=== PATIENT | female | born 1975 | race Caucasian/White ===

== ENCOUNTER → 2017-01-22 | Outpatient (CLI) | payer OTHER ==
[~2017-01-22] MED LIST: ACHD5005 PO; ALPR.25T PO; AMLO10TA82 PO; AMOX500C2 PO; CARI350T27; CLIN300C3 PO; CTLP20T PO; CYCL10TA9 PO; DICL25TA PO; FLUT9.9S NSEACH; FURO20TA4 PO; GABA-488 PO; HYDR-3714 PO; HYDR-3812; HYDR118S10 PO; HYDR1CAP3 PO; LEVO200T30 PO; LEVO200T6; LEVO200T6 PO; LORA1TAB; LVT.15T; MELO15TA39; METH4TAB10; MUSCLE RELAXER; NAPR-243 PO; NAPR500T8; OMEP-10 PO; ONDA8TAB9 PO; SIMV20TA3 PO; THYR180T2; TIZA4TAB3; TRAZ100T92 PO; TRM50T PO; [UNRECOGNIZED DRUG - CODE] PO
== END ==
LOC: CARD 09:15
PROVIDERS: ATTEND Nurse Practitioner Family
DX: R07.9 Chest pain, unspecified (principal)
CPT/HCPCS: 93017

== ENCOUNTER 2017-01-26 18:10 | Emergency (ER) | payer OTHER ==
[~2017-01-26] VITALS: Ht 162.6 cm; Wt 104.3 kg
--- NOTE | 2017-01-26 18:26 | ED Cough/URI ---
General Chief Complaint: Cough/Cold/Flu Symptoms Stated Complaint: FEVER/BODY ACHES/DIARRHEA Nursing Triage Note: AMB TO ED FOR SEVERAL DAYS HAS HAD COUGH CONGESTION BODY ACHES. HYDROCODONE NOT HELPING. Source: patient Exam Limitations: no limitations History of Present Illness Time seen by provider: 18:25 Initial Comments To ER with 3 days of nasal congestion, purulent nasal discharge, rhinorrhea, productive cough. Generalized body aches and chills. Timing/Duration: constant Severity/Quality: moderate Modifying Factors: Improves With Coughing Associated Symptoms: cough, fever/chills, nasal congestion Allergies and Home Medications Allergies Coded Allergies: Sulfa (Sulfonamide Antibiotics) (Unverified Allergy, Intermediate, HIVES, 01/23/09) cyclobenzaprine (Unverified Allergy, Unknown, SWELLING, 05/23/16) Home Medications Carisoprodol 350 Mg Tablet, #30 (Reported) Fluticasone Propionate 9.9 Ml [place].susp, 2 ML NSEACH DAILY, #1 Prescribed by: KAYDEN BEJARANO on 08/05/16 1225 Hydrocodone/Acetaminophen 1 Each Tablet, #120 (Reported) Levothyroxine Sodium 200 Mcg Tablet, #30 (Reported) Lorazepam 1 Mg Tablet, #60 (Reported) Meloxicam 15 Mg Tablet, #30 (Reported) Methylprednisolone 4 Mg Tab.ds.pk, #21 (Reported) Naproxen 500 Mg Tablet.dr, #60 (Reported) Thyroid,Pork 180 Mg Tablet, #15 (Reported) Tizanidine HCl 4 Mg Tablet, #180 (Reported) Constitutional: see HPI EENTM: see HPI Respiratory: see HPI, cough Cardiovascular: no symptoms reported Genitourinary: no symptoms reported Musculoskeletal: no symptoms reported Skin: no symptoms reported Psychiatric/Neurological: No Symptoms Reported Past Cybmwch-Uijzgy-Tfqdyy Hx Patient Social History Alcohol Use: Denies Use Recreational Drug Use: No Recent Foreign Travel: No Contact w/Someone Who Travel: No Recent Infectious Disease Expo: No Recent Hopitalizations: No Seasonal Allergies Seasonal Allergies: Yes Surgeries HX Surgeries: Yes Surgeries: Section, Gallbladder, Tubal Ligation Respiratory Hx Respiratory Disorders: No Cardiovascular Hx Cardiac Disorders: Yes Cardiac Disorders: Hypertension Neurological Hx Neurological Disorders: Yes Neurological Disorders: Headaches /Migraines Reproductive System Hx Reproductive Disorders: No Sexually Transmitted Disease: No Genitourinary Hx Genitourinary Disorders: No Gastrointestinal Hx Gastrointestinal Disorders: No Musculoskeletal Hx Musculoskeletal Disorders: Yes Musculoskeletal Disorders: Arthritis, Chronic Back Pain Endocrine Hx Endocrine Disorders: Yes Endocrine Disorders: Hypothyroidsim HEENT HX ENT Disorders: No Cancer Hx Cancer: No Psychosocial Hx Psychiatric Problems: Yes Behavioral Health Disorders: Depression Blood Transfusions Hx Blood Disorders: No Family Medical History Significant Family History: No Pertinent Family Hx Physical Exam Vital Signs Vital Sign - Last 12Hours 01/26/17 18:13 Temp 98.6 Pulse 107 Resp 18 B/P (MAP) 146/107 Capillary Refill : Less Than 3 Seconds General Appearance: WD/WN, no apparent distress Eyes: Bilateral Eye EOMI, Bilateral Eye Normal Inspection, Bilateral Eye PERRL HEENT: PERRL/EOMI, normal ENT inspection Respiratory: lungs clear, normal breath sounds, no respiratory distress, no accessory muscle use Cardiovascular: no murmur, tachycardia Gastrointestinal: normal bowel sounds, non tender, soft Neurologic/Psychiatric: alert, normal mood/affect, oriented x 3 Skin: normal color, warm/dry Progress/Results/Core Measures Results/Orders My Orders Orders - NADIA ENGLAND APRN Chest Pa/Lat (2 View) (01/26/17 18:20) Metoprolol Tartrate (Ir) Tab (Lopressor (01/26/17 18:30) Medications Given in ED Current Medications Medications Dose Ordered Sig/Patricia Route Start Time Stop Time Status Last Admin Dose Admin Metoprolol Tartrate 25 mg ONCE ONCE PO 01/26/17 18:30 01/26/17 18:31 DC 01/26/17 18:33 25 MG Vital Signs/I&O Vital Sign - Last 12Hours 01/26/17 18:13 Temp 98.6 Pulse 107 Resp 18 B/P (MAP) 146/107 Blood Pressure Mean: 120 Departure Impression Impression: Primary Impression: Acute sinusitis Disposition: 01 HOME, SELF-CARE Condition: Stable Departure-Patient Inst. Decision time for Depature: 18:34 Referrals: JAMES WRIGHT MD (PCP/Family) Primary Care Physician Patient Instructions: Sinusitis, Adult (DC) Add. Discharge Instructions: 1. Antibiotics and steroids as directed 2. Use an cjbe-bbl-yjvazcv nasal steroid spray like Flonase as directed 3. Follow-up with your doctor later this week All discharge instructions reviewed with patient and/or family. Voiced understanding. Scripts Prednisone (Prednisone) 20 Mg Tab 40 MG PO DAILY, #6 TAB Prov: NADIA ENGLAND APRN 01/26/17 Amoxicillin/Potassium Clav (Augmentin 875-125 Tablet) 1 Each Tablet 1 EACH PO BID, #14 TAB Prov: NADIA ENGLAND APRN 01/26/17 NADIA ENGLAND APRN January 26, 2017 18:26
[2017-01-26] MEDS ORDERED: meTOprolol TARTRATE 25 MG (LOPRESSOR) TABLET PO ONE (18:30)
[2017-01-26] MEDS ORDERED: PRD20T PO (18:36)
[2017-01-26] MEDS ORDERED: AMOX-358 PO (18:36)
[2017-01-26] MEDS ORDERED: predniSONE 20 MG TAB PO ONE (18:45)
[2017-01-26] MEDS ORDERED: AUGMENTIN 875 MG TAB (AMOXICILLIN/CLAVULANATE) PO SCH (18:45)
[2017-01-26 18:53] VITALS: BP 134/92
--- NOTE | 2017-01-26 19:19 | Diagnostic Imaging Report ---
Clinical indication: Patient with chest pressure, cough, drainage and fatigue for the past couple days. Exam: Chest x-ray PA and lateral views. Comparisons: Chest x-ray dated 05/15/2016. Findings: Lungs/pleura: Lungs are clear. There is no pneumothorax. There is no pleural effusion. Mediastinum: Unremarkable. Pulmonary vasculature: Unremarkable. Heart: Unremarkable. Bones/extrathoracic soft tissue: Unremarkable. Impression: There is no radiographic evidence of acute cardiopulmonary process. Dictated by: Dictated on workstation # [id number]
== END 2017-01-26 18:56 | disposition home or self-care (01) ==
LOC: EDUNIT# 18:10 → ER 18:11
DX: J20.9 Acute bronchitis, unspecified (principal); R50.9 Fever, unspecified; R19.7 Diarrhea, unspecified; I10 Essential (primary) hypertension; E03.9 Hypothyroidism, unspecified; Z79.899 Other long term (current) drug therapy
CPT/HCPCS: 71020; 99282

== ENCOUNTER → 2017-02-21 | Outpatient (CLI) | payer OTHER ==
[~2017-02-21] MED LIST changes: +AMOX-358 PO; +PRD20T PO
--- NOTE | 2017-02-22 14:33 | ECHOCARDIOGRAPHY REPORT ---
DATE OF SERVICE: 02/21/2017 TWO DIMENSIONAL ECHOCARDIOGRAM REPORT REFERRING PHYSICIAN: Dr. Austin Recio. MEASUREMENT: LVID end diastolic 3.5. IVS thickness 1.1. LVPW thickness 0.9. Left atrial diameter 2.9. Ejection fraction 60%. FINDINGS: 1. Technical quality is good. 2. The left ventricle is normal in size with normal contractility, systolic function appeared to be normal. Estimated ejection fraction 60%. 3. The left atrium is normal in size. No clot or thrombus were seen within the left atrium. 4. The right atrium and right ventricle are normal in size. No clot or thrombus were seen within the right side. 5. Mitral valve is normal in morphology with mild mitral regurgitation noted by color Doppler flow. No mitral valve prolapse. No mitral valve stenosis, Doppler across the mitral valve showed equalization of E and A, which is suggestive of diastolic dysfunction. 6. Aortic valve is trileaflet with normal opening and closing pattern. No significant aortic stenosis or regurgitation was seen. 7. Tricuspid valve is normal in morphology with mild tricuspid regurgitation noted by color Doppler flow. Doppler across the tricuspid valve estimated pulmonary artery pressure of 6+ right atrial pressure. 8. Pulmonic valve is functioning normally. 9. No pericardial effusion. CONCLUSION: 1. Normal left ventricular size and systolic function, estimated ejection fraction 60%. 2. Doppler across the left ventricular inflow tract is suggestive of diastolic dysfunction. 3. Mild mitral and tricuspid regurgitation. 4. Estimated pulmonary artery pressure of 15 mmHg. Job ID: [id number] DocumentID: [id number] Dictated Date: 02/22/2017 10:24:24 Stock Crane Operator Date: 02/22/2017 11:31:03 Dictated By: JN MESA MD
== END ==
LOC: CARD 12:46
PROVIDERS: ATTEND Internal Medicine Cardiovascular Disease
DX: I10 Essential (primary) hypertension (principal); R07.89 Other chest pain; E07.9 Disorder of thyroid, unspecified; K21.9 Gastro-esophageal reflux disease without esophagitis
CPT/HCPCS: 93306

== ENCOUNTER → 2017-03-12 | Outpatient (CLI) | payer OTHER ==
[~2017-03-12] MED LIST changes: +CATHETER FLUSH 10 ML SYR IV PRN
[2017-03-12 12:55] VITALS: BP 135/79
[2017-03-12 12:58] VITALS: BP 166/92
[2017-03-12 13:03] VITALS: BP 164/86
[2017-03-12 13:05] VITALS: BP 140/80
[2017-03-12 13:07] VITALS: BP 118/74
--- NOTE | 2017-03-14 14:31 | STRESS TEST ---
PROCEDURE PHYSICIAN: JN MESA DATE OF PROCEDURE: 03/12/2017 EXERCISE MYOVIEW STRESS TEST REPORT: REFERRING PHYSICIAN: Dr. Recio BASELINE HEART RATE: 81 BASELINE BLOOD PRESSURE: 135/79 BASELINE EKG: Sinus rhythm with no ischemic changes. IN SUMMARY: The patient was injected with 10.72 mCi of technetium 99 Myoview and the resting images were obtained. Then the patient started exercising with a baseline heart rate, blood pressure, EKG mentioned above. At minute 5 and 25 seconds, the patient was injected with 32.9 mCi of technetium 99 Myoview. Throughout the test, there were minimal nondiagnostic EKG changes. Blood pressure at peak was 166/92. During recovery, heart rate and blood pressure returned to baseline. EKG returned to baseline. The resting and stress images were reviewed and compared in the short axis, horizontal long axis, and vertical long axis views. Review of the images showed breast attenuation affecting the quality of the study. There was mild decreased uptake at the anteroapical segment, no significant ischemia or infarction. SSS is 4, SDS 1, TID value 1.06. On the gated images, the left ventricle appeared to be normal size with normal contractility. Calculated ejection fraction 58%. IN CONCLUSION: 1. Good exercise tolerance a total of 6 minutes 30 seconds on standard Joseph protocol. Total 7 METs, achieving maximum expected heart rate. 2. Appropriate heart rate and blood pressure response to exercise. Returned to baseline during recovery. 3. Nondiagnostic EKG changes with exercise. Returned to baseline during recovery. 4. Breast attenuation with typical female pattern. No significant ischemia or infarction on SPECT images. 5. Normal left ventricular size with normal contractility. Calculated ejection fraction 58%. Job ID: [id number] Dictated Date: 03/14/2017 10:36:47 Lead Java Programmer Date: 03/14/2017 14:25:43 / marika
== END ==
LOC: CARD 11:19
PROVIDERS: ATTEND Internal Medicine Cardiovascular Disease
DX: R07.89 Other chest pain (principal); I10 Essential (primary) hypertension; E07.9 Disorder of thyroid, unspecified; K21.9 Gastro-esophageal reflux disease without esophagitis
CPT/HCPCS: 78452; 93017

== ENCOUNTER 2017-04-29 10:15 | Emergency (ER) | payer OTHER ==
[~2017-04-29] VITALS: Ht 162.6 cm; Wt 104.3 kg
[~2017-04-29 10:15] MED LIST changes: -CATHETER FLUSH 10 ML SYR IV PRN
[2017-04-29] MEDS ORDERED: PARO-49 PO (10:30)
--- NOTE | 2017-04-29 10:49 | ED Back Pain ---
General Chief Complaint: Back Problems Stated Complaint: LOWER BACK PAIN Nursing Triage Note: PT STATES HX OF BACK PAIN, CC OF LOW BACK PAIN GOING DOWN RT LEG SINCE 0800 THIS A.M. Nursing Sepsis Screen: No Definite Risk Source of Information: Patient Exam Limitations: No Limitations History of Present Illness Time Seen by Provider: 10:30 Location: Lumbar Spine, Paraspinous Muscles Timing/Duration: 1-3 Hours Severity: Moderate Pain/Injury Location: Back Radiation: Buttocks, Upper Legs Modifying Factors: Worse With Movement, Improves With Rest Associated Symptoms: muscle spasms, No weakness, No numbness in legs/feet, No tingling in legs/feet, lower back pain, No loss of bladder control, No loss of bowel control Allergies and Home Medications Allergies Coded Allergies: Sulfa (Sulfonamide Antibiotics) (Unverified Allergy, Intermediate, HIVES, 01/23/09) cyclobenzaprine (Unverified Allergy, Unknown, SWELLING, 05/23/16) Home Medications Carisoprodol 350 Mg Tablet, #30 (Reported) Fluticasone Propionate 9.9 Ml [place].susp, 2 ML NSEACH DAILY, #1 Prescribed by: KAYDEN BEJARANO on 08/05/16 1225 Hydrocodone/Acetaminophen 1 Each Tablet, #120 (Reported) Levothyroxine Sodium 200 Mcg Tablet, #30 (Reported) Lorazepam 1 Mg Tablet, #60 (Reported) Meloxicam 15 Mg Tablet, #30 (Reported) Methylprednisolone 4 Mg Tab.ds.pk, #21 (Reported) Naproxen 500 Mg Tablet.dr, #60 (Reported) Paroxetine HCl 20 Mg Tablet, 20 MG PO DAILY, (Reported) Prednisone 20 Mg Tab, 40 MG PO DAILY, #6 Prescribed by: NADIA ENGLAND on 01/26/17 1836 Thyroid,Pork 180 Mg Tablet, #15 (Reported) Tizanidine HCl 4 Mg Tablet, #180 (Reported) Constitutional: see HPI, No chills, No fever Respiratory: no symptoms reported Cardiovascular: no symptoms reported Gastrointestinal: diarrhea, No nausea, No vomiting Genitourinary: no symptoms reported Musculoskeletal: back pain Psychiatric/Neurological: No Symptoms Reported Past Iguncfk-Vvvqgk-Ztejiq Hx Patient Social History Alcohol Use: Denies Use Recreational Drug Use: No Smoking Status: Never a Smoker Recent Foreign Travel: No Contact w/Someone Who Travel: No Recent Infectious Disease Expo: No Recent Hopitalizations: No Seasonal Allergies Seasonal Allergies: Yes Surgeries HX Surgeries: Yes Surgeries: Section, Gallbladder, Tubal Ligation Respiratory Hx Respiratory Disorders: No Cardiovascular Hx Cardiac Disorders: Yes Cardiac Disorders: Hypertension Neurological Hx Neurological Disorders: Yes Neurological Disorders: Headaches /Migraines Reproductive System : No Hx Reproductive Disorders: No Sexually Transmitted Disease: No 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 Genitourinary Hx Genitourinary Disorders: No Gastrointestinal Hx Gastrointestinal Disorders: No Musculoskeletal Hx Musculoskeletal Disorders: Yes Musculoskeletal Disorders: Arthritis, Chronic Back Pain Endocrine Hx Endocrine Disorders: Yes Endocrine Disorders: Hypothyroidsim HEENT HX ENT Disorders: No Cancer Hx Cancer: No Psychosocial Hx Psychiatric Problems: Yes Behavioral Health Disorders: Depression Blood Transfusions Hx Blood Disorders: No Reviewed Nursing Assessment Reviewed/Agree w Nursing PMH: Yes Family Medical History Significant Family History: No Pertinent Family Hx Physical Exam Vital Signs Vital Sign - Last 12Hours 04/29/17 10:24 Temp 97.4 Pulse 83 Resp 20 B/P (MAP) 142/93 Pulse Ox 100 O2 Delivery Room Air Capillary Refill : Less Than 3 Seconds General Appearance: No Apparent Distress, WD/WN Cardiovascular: Regular Rate, Rhythm, No Murmur Respiratory: Lungs Clear, Normal Breath Sounds Back: Muscle Spasm, Other (right low back tenderness) Extremity: Normal Range of Motion, Non Tender Neurologic/Psychiatric: Alert, Oriented x3, No Motor/Sensory Deficits, Other ( retains feeling between the legs. She is able to dorsiflex and plantarflex the feet bilaterally without difficulty.) Skin: Normal Color, Warm/Dry Progress/Results/Core Measures Results/Orders My Orders Orders - DEMETRA EUGENE MD Ketorolac Injection (Toradol Injection) (04/29/17 11:00) Vital Signs/I&O Vital Sign - Last 12Hours 04/29/17 10:24 Temp 97.4 Pulse 83 Resp 20 B/P (MAP) 142/93 Pulse Ox 100 O2 Delivery Room Air Blood Pressure Mean: 109 Progress Note : Progress Note Seen and evaluated. Toradol 60 mg IM. Discharged home with return precautions. Patient verbalize understanding instructions and agreement with plan. She did report some blood in her stool with diarrhea yesterday. She states that she wishes hemorrhoids. I did offer exam and evaluation for this which she declined. She states she has appointment next week for her women's health exam and she will have follow then. Encouraged to return for any concerns related to that and definitely to seek evaluation for this. Discharged home with return precautions. Patient verbalize understanding instructions and agreement with plan. Departure Impression Impression: Primary Impression: Lumbar radiculopathy Disposition: HOME, SELF-CARE Condition: Improved Departure-Patient Inst. Decision time for Depature: 11:07 Referrals: JAMES WRIGHT MD (PCP/Family) Primary Care Physician Patient Instructions: Low Back Pain (DC), Radiculopathy (DC) Add. Discharge Instructions: All discharge instructions reviewed with patient and/or family. Voiced understanding. Continue home medications as directed. Take other medications as prescribed. Follow-up with your Dr. in a few days for recheck. Return for worse pain, fever , vomiting, weakness, breathing problems, blood in urine or stools or persistent rectal bleeding or other concerns as needed. Keep appointment with your doctor and discuss with your doctor related to a concern for hemorrhoid and /or blood with diarrhea. Scripts Prednisone (Prednisone) 20 Mg Tab 40 MG PO DAILY, #10 TAB 0 Refills Prov: DEMETRA EUGENE MD 04/29/17 DEMETRA EUGENE MD Apr 29, 2017 10:49
[2017-04-29] MEDS ORDERED: KETOROLAC 60 MG/2 ML VIAL IM STA (11:00)
[2017-04-29] MEDS ORDERED: PRD20T PO (11:07)
[2017-04-29 11:31] VITALS: BP 142/93
== END 2017-04-29 11:30 | disposition home or self-care (01) ==
LOC: EDUNIT# 10:15 → ER 10:18
DX: M54.16 Radiculopathy, lumbar region (principal); I10 Essential (primary) hypertension; G43.909 Migraine, unspecified, not intractable, without status migrainosus; M19.90 Unspecified osteoarthritis, unspecified site; E03.9 Hypothyroidism, unspecified; F32.9 Major depressive disorder, single episode, unspecified; Z87.59 Personal history of other complications of pregnancy, childbirth and the puerperium; Z98.51 Tubal ligation status
CPT/HCPCS: 96372; 99284

== ENCOUNTER 2017-06-10 16:42 | Emergency (ER) | payer OTHER ==
[~2017-06-10] VITALS: Ht 162.6 cm; Wt 103.4 kg
[~2017-06-10 16:42] MED LIST changes: +PARO-49 PO
--- OUTSIDE RECORDS SUMMARY | 2017-06-10 16:49 | XMS REPORT ---
Author Author MARIAA CLEMENTE [facility] Address Unknown Care Team Providers Care Applications Scientist Name Role Phone MARIAA CLEMENTE Unavailable PROBLEMS Type Condition ICD9-CM Code ICD76-VY Code Onset Dates Condition Status SNOMED Code Problem Dysthymia 300.4 Active 06174332 Problem Chronic pain G89.29 Active 06787502 Problem Acquired hypothyroidism E03.9 Active 443922771 Problem Other chronic pain G89.29 Active 34114186 Problem Insomnia 780.52 Active 122795608 Problem Primary insomnia F51.01 Active 4201147 Problem Depression F32.9 Active 37144263 ALLERGIES Substance Reaction Event Type Date Status Cortisone Unknown Drug Allergy Jul, Active Sulfamethoxazole Unknown Drug Allergy Jul, Active Flexeril Unknown Drug Allergy Jul, Active SOCIAL HISTORY No smoking Hx information available PLAN OF CARE Activity Details Follow Up prn Reason:te #30 VITAL SIGNS Blood pressure systolic 116 mmHg 2016-08-13 Blood pressure diastolic 91 mmHg 2016-08-13 MEDICATIONS Medication Instructions Dosage Frequency Start Date End Date Duration Status Tizanidine HCl Active Naproxen Active Levothyroxine Sodium 175 MCG Orally Once a day 1 tablet 24h Jul, 30 day(s) Active Hydrocodone-Acetaminophen 5-325 MG Orally every 8 hours prn must last 4 weeks take 1 tablet Active Carisoprodol Active RESULTS No Results PROCEDURES Procedure Date Ordered Related Diagnosis Body Site LTD ORAL EVALUATION - PROBLEM FOCUS Aug 13, 2016 INTRAORL-PERIAPICAL 1 FILM [id number] Aug 13, 2016 BITEWING - SINGLE FILM Aug 13, 2016 IMMUNIZATIONS No Known Immunizations
--- OUTSIDE RECORDS SUMMARY | 2017-06-10 16:49 | XMS REPORT ---
Author Author MARIAA CLEMENTE [facility] Address Unknown Care Team Providers Care Inspector [employer] Name Role Phone MARIAA CLEMENTE Unavailable PROBLEMS Type Condition ICD9-CM Code [id number] Code Onset Dates Condition Status SNOMED Code Problem Dysthymia 300.4 Active 27739346 Problem Primary insomnia F51.01 Active 7819325 Problem Depression F32.9 Active 49133643 Problem Other chronic pain G89.29 Active 05383090 Problem Insomnia 780.52 Active 197831593 Problem Chronic pain G89.29 Active 58159253 Problem Acquired hypothyroidism E03.9 Active 315326933 ALLERGIES Substance Reaction Event Type Date Status Cortisone Unknown Drug Allergy Oct, Active Sulfamethoxazole Unknown Drug Allergy Oct, Active Flexeril Unknown Drug Allergy Oct, Active SOCIAL HISTORY Never Assessed PLAN OF CARE Activity Details Follow Up prn Reason:MARIBEL with HYG VITAL SIGNS Blood pressure systolic 127 mmHg 2016-10-17 Blood pressure diastolic 84 mmHg 2016-10-17 MEDICATIONS Medication Instructions Dosage Frequency Start Date End Date Duration Status Levothyroxine Sodium 175 MCG Orally Once a day 1 tablet 24h Jul, 30 day(s) Active Carisoprodol Active Tizanidine HCl Active Naproxen Active Hydrocodone-Acetaminophen 5-325 MG Orally every 8 hours prn must last 4 weeks take 1 tablet Active RESULTS No Results PROCEDURES Procedure Date Ordered Result Body Site SURG REMOVAL ERUPTED TOOTH Oct 17, 2016 IMMUNIZATIONS No Known Immunizations MEDICAL (GENERAL) HISTORY Type Description Date Medical History back pain-chronic Medical History headache Medical History lumbar radiculopathy Medical History obesity Medical History Hypothyroidism Medical History hyperlipidemia Medical History bulging disc(s) Medical History gastroesophageal reflux disease (GERD) Medical History insomnia Medical History dysthymic disorder Medical History recurrent dislocation of knee Medical History meninscus tear Medical History lazy eye (R) Medical History PCOS (Polycystic Ovary Syndrome) Surgical History tubal ligation Surgical History section x2 Surgical History cholecystectomy Hospitalization History Surgery(s)/Childbirth(s) only
[2017-06-10] MEDS ORDERED: KETOROLAC 60 MG/2 ML VIAL IM STA (17:38)
--- NOTE | 2017-06-10 17:45 | ED Back Pain ---
General Chief Complaint: Back Problems Stated Complaint: BACK PAIN Nursing Triage Note: C/O BACK PAIN REPORTS HER PAIN MEDS HAVE JUST BEEN INCREASED. Nursing Sepsis Screen: No Definite Risk Source of Information: Patient Exam Limitations: No Limitations History of Present Illness Time Seen by Provider: 17:30 Initial Comments Here with report of low back pain. Has history of chronic pain and is on pain medicines and muscle relaxers. States that that did not really help much today. 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 She works part of the day today but was unable to complete it. Denies numbness between her legs, weakness or difficulty walking. Denies bowel or bladder incontinence. Pain is chronic but exacerbated currently. On her last visit here she responded very well to steroids and reports that she thinks that would help her as well. Location: Lumbar Spine, Paraspinous Muscles Timing/Duration: 1-2 Days Severity: Moderate Radiation: Buttocks Method of Injury: Unknown Modifying Factors: Worse With Movement Associated Symptoms: No numbness in legs/feet, No tingling in legs/feet, No sensory/motor loss, lower back pain, No loss of bladder control, No loss of bowel control Allergies and Home Medications Allergies Coded Allergies: Sulfa (Sulfonamide Antibiotics) (Unverified Allergy, Intermediate, HIVES, 01/23/09) cyclobenzaprine (Unverified Allergy, Unknown, SWELLING, 05/23/16) Home Medications Carisoprodol 350 Mg Tablet, #30 (Reported) Fluticasone Propionate 9.9 Ml [place].susp, 2 ML NSEACH DAILY, #1 Prescribed by: KAYDEN BEJARANO on 08/05/16 1225 Hydrocodone/Acetaminophen 1 Each Tablet, #120 (Reported) Levothyroxine Sodium 200 Mcg Tablet, #30 (Reported) Lorazepam 1 Mg Tablet, #60 (Reported) Meloxicam 15 Mg Tablet, #30 (Reported) Methylprednisolone 4 Mg Tab.ds.pk, #21 (Reported) Naproxen 500 Mg Tablet.dr, #60 (Reported) Paroxetine HCl 20 Mg Tablet, 20 MG PO DAILY, (Reported) Prednisone 20 Mg Tab, 40 MG PO DAILY, #6 Prescribed by: NADIA ENGLAND on 01/26/17 1836 Prednisone 20 Mg Tab, 40 MG PO DAILY, #10 Ref 0 Prescribed by: DEMETRA EUGENE on 04/29/17 1107 Thyroid,Pork 180 Mg Tablet, #15 (Reported) Tizanidine HCl 4 Mg Tablet, #180 (Reported) Constitutional: see HPI, No chills, No fever Respiratory: no symptoms reported Cardiovascular: no symptoms reported Gastrointestinal: no symptoms reported Musculoskeletal: see HPI, back pain, muscle pain Psychiatric/Neurological: No Symptoms Reported Past Zoxoyfi-Ymkprs-Mhwpcv Hx Patient Social History Alcohol Use: Denies Use Recreational Drug Use: No Recent Foreign Travel: No Contact w/Someone Who Travel: No Recent Infectious Disease Expo: No Recent Hopitalizations: No Seasonal Allergies Seasonal Allergies: Yes Surgeries History of Surgeries: Yes Surgeries: Section, Gallbladder, Tubal Ligation Respiratory History of Respiratory Disorde: No Cardiovascular History of Cardiac Disorders: Yes Cardiac Disorders: Hypertension Neurological History of Neurological Disord: Yes Neurological Disorders: Headaches /Migraines Reproductive System Hx Reproductive Disorders: No Sexually Transmitted Disease: No 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 Genitourinary History of Genitourinary Disor: No Gastrointestinal History of Gastrointestinal Di: No Musculoskeletal History of Musculoskeletal Dis: Yes Musculoskeletal Disorders: Arthritis, Chronic Back Pain Endocrine History of Endocrine Disorders: Yes Endocrine Disorders: Hypothyroidsim Cancer History of Cancer: No Psychosocial History of Psychiatric Problem: Yes Behavioral Health Disorders: Depression Integumentary History of Skin or Integumenta: No Blood Transfusions History of Blood Disorders: No Reviewed Nursing Assessment Reviewed/Agree w Nursing PMH: Yes Family Medical History Significant Family History: No Pertinent Family Hx Physical Exam Vital Signs Vital Sign - Last 12Hours 06/10/17 17:21 Temp 97.6 Pulse 89 Resp 18 B/P (MAP) 164/100 Pulse Ox 99 O2 Delivery Room Air Capillary Refill : Less Than 3 Seconds General Appearance: No Apparent Distress, WD/WN Cardiovascular: Regular Rate, Rhythm, No Murmur Respiratory: Lungs Clear, Normal Breath Sounds Gastrointestinal: Non Tender, Soft Back: No CVA Tenderness, No Vertebral Tenderness, Other (paraspinous tenderness in the lumbar region L2 to L4. Bilateral. No tenderness over the hips. Able to dorsiflex and plantar flex without difficulty. Denies numbness between her legs.) Extremity: Normal Range of Motion, Non Tender Neurologic/Psychiatric: Alert, Oriented x3 Skin: Normal Color, Warm/Dry Progress/Results/Core Measures Results/Orders My Orders Orders - DEMETRA EUGENE MD Ketorolac Injection (Toradol Injection) (06/10/17 17:38) Vital Signs/I&O Vital Sign - Last 12Hours 06/10/17 17:21 Temp 97.6 Pulse 89 Resp 18 B/P (MAP) 164/100 Pulse Ox 99 O2 Delivery Room Air Blood Pressure Mean: 121 Progress Note : Progress Note Seen and evaluated. Toradol 60 mg IM. Discharged home with return precautions. Patient verbalize understanding instructions and agreement with plan. Departure Impression Impression: Primary Impression: Lumbar radiculopathy Disposition: HOME, SELF-CARE Condition: Stable Departure-Patient Inst. Decision time for Depature: 17:47 Referrals: JAMES WRIGHT MD (PCP/Family) Primary Care Physician Patient Instructions: Lumbar Muscle Strain (DC) Add. Discharge Instructions: All discharge instructions reviewed with patient and/or family. Voiced understanding. Continue home medications as directed. You may also take ibuprofen 800 mg every 8 hours as needed for pain. You may use icy hot with lidocaine patch or Aspercreme lidocaine patch are similar to area of concern per package directions. Follow up with your DrDinah in one to 2 days for recheck. Return for worse pain, fever, vomiting, weakness, breathing problems or other concerns as needed. Scripts Prednisone (Prednisone) 20 Mg Tab 40 MG PO DAILY, #14 TAB 0 Refills Prov: DEMETRA EUGENE MD 06/10/17 Work/School Note: Work Release Form Date Seen in the Emergency Department: Jun 10, 2017 Return to Work: Jun 12, 2017 Restrictions: No Restrictions DEMETRA EUGENE MD Jun 10, 2017 17:45
[2017-06-10] MEDS ORDERED: PRD20T PO (17:49)
[2017-06-10 18:05] VITALS: BP 164/100
== END 2017-06-10 18:05 | disposition home or self-care (01) ==
LOC: EDUNIT# 16:42 → ER 16:43
DX: M54.16 Radiculopathy, lumbar region (principal); I10 Essential (primary) hypertension; G43.909 Migraine, unspecified, not intractable, without status migrainosus; F32.9 Major depressive disorder, single episode, unspecified; E03.9 Hypothyroidism, unspecified; Z98.51 Tubal ligation status; Z87.59 Personal history of other complications of pregnancy, childbirth and the puerperium
CPT/HCPCS: 96372; 99284

== ENCOUNTER → 2017-08-14 | Outpatient (CLI) | payer OTHER ==
--- NOTE | 2017-08-14 08:35 | Diagnostic Imaging Report ---
Right breast ultrasound. INDICATION: Asymmetry in the right breast. FINDINGS: The four quadrants and retroareolar region of the right breast were scanned with no underlying abnormality seen. IMPRESSION: Negative study. A six-month followup mammogram to ensure stability of the likely benign lobulated circumscribed focal asymmetry in the right breast is recommended. ACR BI-RADS Category 1: Negative. Result letter will be mailed to the patient. Note: At least 10% of breast cancer is not imaged by mammography. Dictated by: Dictated on workstation # [id number]
--- NOTE | 2017-08-14 09:30 | Diagnostic Imaging Report ---
Right breast diagnostic mammogram with tomography evaluation. INDICATION: Followup asymmetry seen in the central aspect of the right breast and laterally. CAD is utilized. No prior studies are available for comparison except for the screening mammogram done on 07/23/2017. FINDINGS: There is a lobulated focal asymmetry in the outer aspect of the right breast. It has circumscribed margins and may relate to a cyst or an intramammary lymph node. IMPRESSION: Confirmed circumscribed 1-cm nodule in the outer aspect of the right breast is favored to be benign. Ultrasound evaluation pending. ACR BI-RADS Category 0: Incomplete. (Needs additional imaging evaluation). Result letter will be mailed to the patient. Note: At least 10% of breast cancer is not imaged by mammography. Dictated by: Dictated on workstation # [id number]
== END ==
LOC: RAD 07:25
PROVIDERS: ATTEND Nurse Practitioner Family
DX: N64.89 Other specified disorders of breast (principal)
CPT/HCPCS: 76641

== ENCOUNTER → 2017-12-09 | Outpatient (CLI) | payer OTHER ==
[~2017-12-09] MED LIST changes: +ACHD5005; -HYDR-3812
--- NOTE | 2017-12-09 15:07 | Diagnostic Imaging Report ---
INDICATION: Left foot pain laterally. TIME OF EXAMINATION: 2:47 PM. TECHNIQUE: Three views of the left foot were obtained. FINDINGS: The metatarsals appear intact. No periosteal reaction or stress reaction is identified. The phalanges are intact. The midfoot and hindfoot are unremarkable apart from large posterior and plantar calcaneal spurs. No fractures are seen. IMPRESSION: No acute bony abnormality is detected. Dictated by: Dictated on workstation # [id number]
== END ==
LOC: RAD 14:12
PROVIDERS: ATTEND Nurse Practitioner Family
DX: M79.672 Pain in left foot (principal)
CPT/HCPCS: 73630

== ENCOUNTER 2018-07-24 16:12 | Emergency (ER) | payer OTHER ==
[~2018-07-24] VITALS: Ht 160 cm; Wt 100.7 kg
[~2018-07-24 16:12] MED LIST changes: +TRAZ-190 PO; -TRAZ100T92 PO
--- OUTSIDE RECORDS SUMMARY | 2018-07-24 16:21 | XMS REPORT | Continuity of Care Document ---
Author Author [facility] Ctr of [facility] of [facility] Address Unknown Phone Unavailable Allergies Active Description Code Type Severity Reaction Onset Reported/Identified Relationship to Patient Clinical Status Yes Sulfa (Sulfonamide Antibiotics) [id number] Drug Allergy Moderate HIVES 07/2009 Yes Sulfa (Sulfonamide Antibiotics) Drug Allergy N/A N/A 07/31/2009 Yes Flexeril Drug Allergy N/A N/A 12/18/2010 Yes Cortisone Drug Allergy N/A N/A 11/23/2013 Yes cyclobenzaprine [id number] Drug Allergy Unknown SWELLING 05/23/2016 Medications There is no data. Problems Date Dx Coded Attending Type Code Diagnosis Diagnosed By 04/12/2008 JITENDRA GARCIA DO 719.47 PAIN IN JOINT INVOLVING ANKLE AND FOOT 04/12/2008 TAMIKO CARROLL MD 719.47 PAIN IN JOINT INVOLVING ANKLE AND FOOT 04/12/2008 JITENDRA GARCIA DO 719.47 PAIN IN JOINT INVOLVING ANKLE AND FOOT 04/12/2008 JITENDRA GARCIA DO 719.47 PAIN IN JOINT INVOLVING ANKLE AND FOOT 04/12/2008 JITENDRA GARCIA DO 719.Mateo PAIN IN JOINT INVOLVING ANKLE AND FOOT 04/12/2008 LORA CASTRO APRN 719.47 PAIN IN JOINT INVOLVING ANKLE AND FOOT 04/12/2008 LUIS F ROMERO APRN 719.47 PAIN IN JOINT INVOLVING ANKLE AND FOOT 04/12/2008 LUIS F ROMERO APRN 719.47 PAIN IN JOINT INVOLVING ANKLE AND FOOT 04/12/2008 LUIS F ROMERO APRN 719.47 PAIN IN JOINT INVOLVING ANKLE AND FOOT 04/12/2008 LUIS F ROMERO APRN 719.47 PAIN IN JOINT INVOLVING ANKLE AND FOOT 04/12/2008 JITENDRA GARCIA DO 719.47 PAIN IN JOINT INVOLVING ANKLE AND FOOT 04/12/2008 JITENDRA GARCIA DO 719.47 PAIN IN JOINT INVOLVING ANKLE AND FOOT 04/12/2008 MADL DIE MAKER APPRENTICE, LUIS F L 719.47 PAIN IN JOINT INVOLVING ANKLE AND FOOT 04/12/2008 719.47 PAIN IN JOINT INVOLVING ANKLE AND FOOT 04/12/2008 MADL DIE MAKER APPRENTICE, LUIS F L 719.47 PAIN IN JOINT INVOLVING ANKLE AND FOOT 04/12/2008 GARCIA DO JITENDRA K 719.47 PAIN IN JOINT INVOLVING ANKLE AND FOOT 04/12/2008 MADL DIE MAKER APPRENTICE, LUIS F L 719.47 PAIN IN JOINT INVOLVING ANKLE AND FOOT 04/12/2008 MADL DIE MAKER APPRENTICE, LUIS F L 719.47 PAIN IN JOINT INVOLVING ANKLE AND FOOT 04/15/2008 GARCIA DO JITENDRA K 845.00 SPRAIN/STRAIN ANKLE 04/15/2008 GLEN BARAHONA, TAMIKO Francis 845.00 SPRAIN/STRAIN ANKLE 04/15/2008 GARCIA DO JITENDRA K 845.00 SPRAIN/STRAIN ANKLE 04/15/2008 GARCIA DO JITENDRA K 845.00 SPRAIN/STRAIN ANKLE 04/15/2008 GARCIA DO JITENDRA K 845.00 SPRAIN/STRAIN ANKLE 04/15/2008 MATTHEW DIE MAKER APPRENTICE, LORA R 845.00 SPRAIN/STRAIN ANKLE 04/15/2008 MADL DIE MAKER APPRENTICE, LUIS F L 845.00 SPRAIN/STRAIN ANKLE 04/15/2008 MADL DIE MAKER APPRENTICE, LUIS F L 845.00 SPRAIN/STRAIN ANKLE 04/15/2008 MADL DIE MAKER APPRENTICE, LUIS F L 845.00 SPRAIN/STRAIN ANKLE 04/15/2008 MADL DIE MAKER APPRENTICE, LUIS F L 845.00 SPRAIN/STRAIN ANKLE 04/15/2008 GARCIA DO, JITENDRA K 845.00 SPRAIN/STRAIN ANKLE 04/15/2008 GARCIA DO, JITENDRA K 845.00 SPRAIN/STRAIN ANKLE 04/15/2008 MADL DIE MAKER APPRENTICE, LUIS F L 845.00 SPRAIN/STRAIN ANKLE 04/15/2008 845.00 SPRAIN/ STRAIN ANKLE 04/15/2008 MADL DIE MAKER APPRENTICE, LUIS F L 845.00 SPRAIN/STRAIN ANKLE 04/15/2008 GARCIA DO JITENDRA K 845.00 SPRAIN/STRAIN ANKLE 04/15/2008 MADL DIE MAKER APPRENTICE, LUIS F L 845.00 SPRAIN/STRAIN ANKLE 04/15/2008 MADL DIE MAKER APPRENTICE, LUIS F L 845.00 SPRAIN/STRAIN ANKLE 05/31/2008 GARCIA DO, JITENDRA K 465.9 UPPER RESPIRATORY INFECTION 05/31/2008 GARCIA DO, JITENDRA K 724.2 lower back pain 05/31/2008 GLEN BARAHONA, TAMIKO M 465.9 UPPER RESPIRATORY INFECTION 05/31/2008 GLEN BARAHONA, TAMIKO M 724.2 lower back pain 05/31/2008 GARCIA DO, JITENDRA K 465.9 UPPER RESPIRATORY INFECTION 05/31/2008 GARCIA DO, JITENDRA K 724.2 lower back pain 05/31/2008 GARCIA DO, JITENDRA K 465.9 UPPER RESPIRATORY INFECTION 05/31/2008 GARCIA DO, JITENDRA K 724.2 lower back pain 05/31/2008 GARCIA DO, JITENDRA K 465.9 UPPER RESPIRATORY INFECTION 05/31/2008 GARCIA DO, JITENDRA K 724.2 lower back pain 05/31/2008 MATTHEW DIE MAKER APPRENTICE, LORA R 465.9 UPPER RESPIRATORY INFECTION 05/31/2008 MATTHEW DIE MAKER APPRENTICE, LORA R 724.2 lower back pain 05/31/2008 MADL DIE MAKER APPRENTICE, LUIS F L 465.9 UPPER RESPIRATORY INFECTION 05/31/2008 MADL DIE MAKER APPRENTICE, LUIS F L 724.2 lower back pain 05/31/2008 MADL DIE MAKER APPRENTICE, LUIS F L 465.9 UPPER RESPIRATORY INFECTION 05/31/2008 MADL DIE MAKER APPRENTICE, LUIS F L 724.2 lower back pain 05/31/2008 MADL DIE MAKER APPRENTICE, LUIS F L 465.9 UPPER RESPIRATORY INFECTION 05/31/2008 MADL DIE MAKER APPRENTICE, LUIS F L 724.2 lower back pain 05/31/2008 MADL DIE MAKER APPRENTICE, LUIS F L 465.9 UPPER RESPIRATORY INFECTION 05/31/2008 MADL DIE MAKER APPRENTICE, LUIS F L 724.2 lower back pain 05/31/2008 GARCIA DO, JITENDRA K 465.9 UPPER RESPIRATORY INFECTION 05/31/2008 GARCIA DO, JITENDRA K 724.2 lower back pain 05/31/2008 GARCIA DO, JITENDRA K 465.9 UPPER RESPIRATORY INFECTION 05/31/2008 GARCIA DO, JITENDRA K 724.2 lower back pain 05/31/2008 MADL DIE MAKER APPRENTICE, LUIS F L 465.9 UPPER RESPIRATORY INFECTION 05/31/2008 MADL DIE MAKER APPRENTICE, LUIS F L 724.2 lower back pain 05/31/2008 465.9 UPPER RESPIRATORY INFECTION 05/31/2008 724.2 lower back pain 05/31/2008 MADL DIE MAKER APPRENTICE, LUIS F L 465.9 UPPER RESPIRATORY INFECTION 05/31/2008 MADL DIE MAKER APPRENTICE, LUIS F L 724.2 lower back pain 05/31/2008 JOSE DO JITENDRA K 465.9 UPPER RESPIRATORY INFECTION 05/31/2008 GARCIA DO JITENDRA K 724.2 lower back pain 05/31/2008 MADL DIE MAKER APPRENTICE, LUIS F L 465.9 UPPER RESPIRATORY INFECTION 05/31/2008 MADL DIE MAKER APPRENTICE, LUIS F L 724.2 lower back pain 05/31/2008 MADL DIE MAKER APPRENTICE, LUIS F L 465.9 UPPER RESPIRATORY INFECTION 05/31/2008 MADL DIE MAKER APPRENTICE, LUIS F L 724.2 lower back pain 08/23/2008 JITENDRA GARCIA DO K 079.99 VIRAL SYNDROME 08/23/2008 TAMIKO CARROLL MD 079.99 VIRAL SYNDROME 08/23/2008 JITENDRA GARCIA DO K 079.99 VIRAL SYNDROME 08/23/2008 JITENDRA GARCIA DO K 079.99 VIRAL SYNDROME 08/23/2008 MARIJA GARCIA DOA K 079.99 VIRAL SYNDROME 08/23/2008 MATTHEW DIE MAKER APPRENTICE, LORA R 079.99 VIRAL SYNDROME 08/23/2008 MADL DIE MAKER APPRENTICE, LUIS F L 079.99 VIRAL SYNDROME 08/23/2008 MADL DIE MAKER APPRENTICE, LUIS F L 079.99 VIRAL SYNDROME 08/23/2008 MADL DIE MAKER APPRENTICE, LUIS F L 079.99 VIRAL SYNDROME 08/23/2008 MADL DIE MAKER APPRENTICE, LUIS F L 079.99 VIRAL SYNDROME 08/23/2008 MARIJA GARCIA DOA K 079.99 VIRAL SYNDROME 08/23/2008 GARCIA MARIJA HENDRIXA K 079.99 VIRAL SYNDROME 08/23/2008 MADL DIE MAKER APPRENTICE, LUIS F L 079.99 VIRAL SYNDROME 08/23/2008 079.99 VIRAL SYNDROME 08/23/2008 MADL DIE MAKER APPRENTICE, LUIS F L 079.99 VIRAL SYNDROME 08/23/2008 GARCIA DOMARIJAA K 079.99 VIRAL SYNDROME 08/23/2008 MADL DIE MAKER APPRENTICE, LUIS F L 079.99 VIRAL SYNDROME 08/23/2008 MADL DIE MAKER APPRENTICE, LUIS F L 079.99 VIRAL SYNDROME 09/01/2008 GARCIA DOMARIJAA K V72.31 METAL ANNEALER EXAM, ROUTINE 09/01/2008 TAMIKO CARROLL MD V72.31 METAL ANNEALER EXAM, ROUTINE 09/01/2008 GARCIA DOJITENDRA K V72.31 METAL ANNEALER EXAM, ROUTINE 09/01/2008 GARCIA DO, JITENDRA K V72.31 METAL ANNEALER EXAM, ROUTINE 09/01/2008 GARCIA DO, JITENDRA K V72.31 METAL ANNEALER EXAM, ROUTINE 09/01/2008 MATTHEW DIE MAKER APPRENTICE, LORA R V72.31 METAL ANNEALER EXAM, ROUTINE 09/01/2008 MADL DIE MAKER APPRENTICE, LUIS F L V72.31 METAL ANNEALER EXAM, ROUTINE 09/01/2008 MADL DIE MAKER APPRENTICE, LUIS F L V72.31 METAL ANNEALER EXAM, ROUTINE 09/01/2008 MADL DIE MAKER APPRENTICE, LUIS F L V72.31 METAL ANNEALER EXAM, ROUTINE 09/01/2008 MADL DIE MAKER APPRENTICE, LUIS F L V72.31 METAL ANNEALER EXAM, ROUTINE 09/01/2008 GARCIA DOMARIJAA K V72.31 METAL ANNEALER EXAM, ROUTINE 09/01/2008 GARCIA DO JITENDRA K V72.31 METAL ANNEALER EXAM, ROUTINE 09/01/2008 MADL DIE MAKER APPRENTICE, LUIS F L V72.31 METAL ANNEALER EXAM, ROUTINE 09/01/2008 V72.31 METAL ANNEALER EXAM, ROUTINE 09/01/2008 MADL DIE MAKER APPRENTICE, LUIS F L V72.31 METAL ANNEALER EXAM, ROUTINE 09/01/2008 GARCIA DO JITENDRA K V72.31 METAL ANNEALER EXAM, ROUTINE 09/01/2008 MADL DIE MAKER APPRENTICE, LUIS F L V72.31 METAL ANNEALER EXAM, ROUTINE 09/01/2008 MADL DIE MAKER APPRENTICE, LUIS F L V72.31 METAL ANNEALER EXAM, ROUTINE 07/04/2009 JITENDRA GARCIA DO 724.5 BACKACHE 07/04/2009 GARCIA MARIJA HENDRIXA K 784.0 headache 07/04/2009 TAMIKO CARROLL MD 724.5 BACKACHE 07/04/2009 TAMIKO CARROLL MD 784.0 headache 07/04/2009 GARCIA DO, JITENDRA K 724.5 BACKACHE 07/04/2009 GARCIA DO, JITENDRA K 784.0 headache 07/04/2009 GARCIA DO, JITENDRA K 724.5 BACKACHE 07/04/2009 GARCIA DO, JITENDRA K 784.0 headache 07/04/2009 GARCIA DO, JITENDRA K 724.5 BACKACHE 07/04/2009 GARCIA DO, JITENDRA K 784.0 headache 07/04/2009 MATTHEW DIE MAKER APPRENTICE, LORA R 724.5 BACKACHE 07/04/2009 MATTHEW DIE MAKER APPRENTICE, LORA R 784.0 headache 07/04/2009 MADL DIE MAKER APPRENTICE, LUIS F L 724.5 BACKACHE 07/04/2009 MADL DIE MAKER APPRENTICE, LUIS F L 784.0 headache 07/04/2009 MADL DIE MAKER APPRENTICE, LUIS F L 724.5 BACKACHE 07/04/2009 MADL DIE MAKER APPRENTICE, LUIS F L 784.0 headache 07/04/2009 MADL DIE MAKER APPRENTICE, LUIS F L 724.5 BACKACHE 07/04/2009 MADL DIE MAKER APPRENTICE, LUIS F L 784.0 headache 07/04/2009 MADL DIE MAKER APPRENTICE, LUIS F L 724.5 BACKACHE 07/04/2009 MADL DIE MAKER APPRENTICE, LUIS F L 784.0 headache 07/04/2009 GARCIA DO, JITENDRA K 724.5 BACKACHE 07/04/2009 GARCIA DO, JITENDRA K 784.0 headache 07/04/2009 GARCIA DO, JITENDRA K 724.5 BACKACHE 07/04/2009 GARCIA DO, JITENDRA K 784.0 headache 07/04/2009 MADL DIE MAKER APPRENTICE, LUIS F L 724.5 BACKACHE 07/04/2009 MADL DIE MAKER APPRENTICE, LUIS F L 784.0 headache 07/04/2009 724.5 BACKACHE 07/04/2009 784.0 headache 07/04/2009 MADL DIE MAKER APPRENTICE, LUIS F L 724.5 BACKACHE 07/04/2009 MADL DIE MAKER APPRENTICE, LUIS F L 784.0 headache 07/04/2009 GARCIA DO, JITENDRA K 724.5 BACKACHE 07/04/2009 GARCIA DO, JITENDRA K 784.0 headache 07/04/2009 MADL DIE MAKER APPRENTICE, LUIS F L 724.5 BACKACHE 07/04/2009 MADL DIE MAKER APPRENTICE, LUIS F L 784.0 headache 07/04/2009 MADL DIE MAKER APPRENTICE, LUIS F L 724.5 BACKACHE 07/04/2009 MADL DIE MAKER APPRENTICE, LUIS F L 784.0 headache 07/31/2009 GARCIA DO, JITENDRA K 487.8 INFLUENZA, WITH OTHER MANIFESTATIONS 07/31/2009 TAMIKO CARROLL MD 487.8 INFLUENZA, WITH OTHER MANIFESTATIONS 07/31/2009 GARCIA DO, JITENDRA K 487.8 INFLUENZA, WITH OTHER MANIFESTATIONS 07/31/2009 GARCIA DO, JITENDRA K 487.8 INFLUENZA, WITH OTHER MANIFESTATIONS 07/31/2009 GARCIA DO, JITENDRA K 487.8 INFLUENZA, WITH OTHER MANIFESTATIONS 07/31/2009 MATTHEW DIE MAKER APPRENTICE, LORA R 487.8 INFLUENZA, WITH OTHER MANIFESTATIONS 07/31/2009 MADL DIE MAKER APPRENTICE, LUIS F L 487.8 INFLUENZA, WITH OTHER MANIFESTATIONS 07/31/2009 MADL DIE MAKER APPRENTICE, LUIS F L 487.8 INFLUENZA, WITH OTHER MANIFESTATIONS 07/31/2009 MADL DIE MAKER APPRENTICE, LUIS F L 487.8 INFLUENZA, WITH OTHER MANIFESTATIONS 07/31/2009 MADL DIE MAKER APPRENTICE, LUIS F L 487.8 INFLUENZA, WITH OTHER MANIFESTATIONS 07/31/2009 GARCIA DO, JITENDRA K 487.8 INFLUENZA, WITH OTHER MANIFESTATIONS 07/31/2009 GARCIA DO, JITENDRA K 487.8 INFLUENZA, WITH OTHER MANIFESTATIONS 07/31/2009 MADL DIE MAKER APPRENTICE, LUIS F L 487.8 INFLUENZA, WITH OTHER MANIFESTATIONS 07/31/2009 487.8 INFLUENZA, WITH OTHER MANIFESTATIONS 07/31/2009 MADL DIE MAKER APPRENTICE, LUIS F L 487.8 INFLUENZA, WITH OTHER MANIFESTATIONS 07/31/2009 GARCIA DO, JITENDRA K 487.8 INFLUENZA, WITH OTHER MANIFESTATIONS 07/31/2009 MADL DIE MAKER APPRENTICE, LUIS F L 487.8 INFLUENZA, WITH OTHER MANIFESTATIONS 07/31/2009 MADL DIE MAKER APPRENTICE, LUIS F L 487.8 INFLUENZA, WITH OTHER MANIFESTATIONS 08/18/2009 GARCIA DO, JITENDRA K 786.50 CHEST PAIN 08/18/2009 GARCIA DO, JITENDRA K 787.2 DYSPHAGIA 08/18/2009 GLEN BARAHONA, TAMIKO Francis 786.50 CHEST PAIN 08/18/2009 TAMIKO CARROLL MD 787.2 DYSPHAGIA 08/18/2009 GARCIA DO, JITENDRA K 786.50 CHEST PAIN 08/18/2009 GARCIA DO, JITENDRA K 787.2 DYSPHAGIA 08/18/2009 GARCIA DO, JITENDRA K 786.50 CHEST PAIN 08/18/2009 GARCIA DO, JITENDRA K 787.2 DYSPHAGIA 08/18/2009 GARCIA DO, JITENDRA K 786.50 CHEST PAIN 08/18/2009 GARCIA DO, JITENDRA K 787.2 DYSPHAGIA 08/18/2009 MATTHEW DIE MAKER APPRENTICE, LORA R 786.50 CHEST PAIN 08/18/2009 MATTHEW DIE MAKER APPRENTICE, LORA R 787.2 DYSPHAGIA 08/18/2009 MADL DIE MAKER APPRENTICE, LUIS F L 786.50 CHEST PAIN 08/18/2009 MADL DIE MAKER APPRENTICE, LUIS F L 787.2 DYSPHAGIA 08/18/2009 MADL DIE MAKER APPRENTICE, LUIS F L 786.50 CHEST PAIN 08/18/2009 MADL DIE MAKER APPRENTICE, LUIS F L 787.2 DYSPHAGIA 08/18/2009 MADL DIE MAKER APPRENTICE, LUIS F L 786.50 CHEST PAIN 08/18/2009 MADL DIE MAKER APPRENTICE, LUIS F L 787.2 DYSPHAGIA 08/18/2009 MADL DIE MAKER APPRENTICE, LUIS F L 786.50 CHEST PAIN 08/18/2009 MADL DIE MAKER APPRENTICE, LUIS F L 787.2 DYSPHAGIA 08/18/2009 GARCIA DO, JITENDRA K 786.50 CHEST PAIN 08/18/2009 GARCIA DO, JITENDRA K 787.2 DYSPHAGIA 08/18/2009 GARCIA DO, JITENDRA K 786.50 CHEST PAIN 08/18/2009 GARCIA DO, JITENDRA K 787.2 DYSPHAGIA 08/18/2009 MADL DIE MAKER APPRENTICE, LUIS F L 786.50 CHEST PAIN 08/18/2009 MADL DIE MAKER APPRENTICE, LUIS F L 787.2 DYSPHAGIA 08/18/2009 786.50 CHEST PAIN 08/18/2009 787.2 DYSPHAGIA 08/18/2009 MADL DIE MAKER APPRENTICE, LUIS F L 786.50 CHEST PAIN 08/18/2009 MADL DIE MAKER APPRENTICE, LUIS F L 787.2 DYSPHAGIA 08/18/2009 GARCIA DO, JITENDRA K 786.50 CHEST PAIN 08/18/2009 GARCIA DO, JITENDRA K 787.2 DYSPHAGIA 08/18/2009 MADL DIE MAKER APPRENTICE, LUIS F L 786.50 CHEST PAIN 08/18/2009 MADL DIE MAKER APPRENTICE, LUIS F L 787.2 DYSPHAGIA 08/18/2009 MADL DIE MAKER APPRENTICE, LUIS F L 786.50 CHEST PAIN 08/18/2009 MADL DIE MAKER APPRENTICE, LUIS F L 787.2 DYSPHAGIA 12/11/2009 GARCIA DO, JITENDRA K 244.9 HYPOTHYROIDISM 12/11/2009 GARCIA DO, JITENDRA K 278.00 OBESITY 12/11/2009 GARCIA DO, JITENDRA K 724.4 LUMBAR RADICULOPATHY 12/11/2009 TAMIKO CARROLL MD 244.9 HYPOTHYROIDISM 12/11/2009 TAMIKO CARROLL MD 278.00 OBESITY 12/11/2009 TAMIKO CARROLL MD 724.4 LUMBAR RADICULOPATHY 12/11/2009 GARCIA DO, JITENDRA K 244.9 HYPOTHYROIDISM 12/11/2009 GARCIA DO, JITENDRA K 278.00 OBESITY 12/11/2009 GARCIA DO, JITENDRA K 724.4 LUMBAR RADICULOPATHY 12/11/2009 GARCIA DO, JITENDRA K 244.9 HYPOTHYROIDISM 12/11/2009 GARCIA DO, JITENDRA K 278.00 OBESITY 12/11/2009 GARCIA DO, JITENDRA K 724.4 LUMBAR RADICULOPATHY 12/11/2009 GARCIA DO, JITENDRA K 244.9 HYPOTHYROIDISM 12/11/2009 GARCIA DO, JITENDRA K 278.00 OBESITY 12/11/2009 GARCIA DO, JITENDRA K 724.4 LUMBAR RADICULOPATHY 12/11/2009 MATTHEW DIE MAKER APPRENTICE, LORA R 244.9 HYPOTHYROIDISM 12/11/2009 MATTHEW DIE MAKER APPRENTICE, LORA R 278.00 OBESITY 12/11/2009 MATTHEW DIE MAKER APPRENTICE, LORA R 724.4 LUMBAR RADICULOPATHY 12/11/2009 MADL DIE MAKER APPRENTICE, LUSI F L 244.9 HYPOTHYROIDISM 12/11/2009 MADL DIE MAKER APPRENTICE, LUIS F L 278.00 OBESITY 12/11/2009 MADL DIE MAKER APPRENTICE, LUIS F L 724.4 LUMBAR RADICULOPATHY 12/11/2009 MADL DIE MAKER APPRENTICE, LUIS F L 244.9 HYPOTHYROIDISM 12/11/2009 MADL DIE MAKER APPRENTICE, LUIS F L 278.00 OBESITY 12/11/2009 MADL DIE MAKER APPRENTICE, LUIS F L 724.4 LUMBAR RADICULOPATHY 12/11/2009 MADL DIE MAKER APPRENTICE, LUIS F L 244.9 HYPOTHYROIDISM 12/11/2009 MADL DIE MAKER APPRENTICE, LUIS F L 278.00 OBESITY 12/11/2009 MADL DIE MAKER APPRENTICE, LUIS F L 724.4 LUMBAR RADICULOPATHY 12/11/2009 MADL DIE MAKER APPRENTICE, LUIS F L 244.9 HYPOTHYROIDISM 12/11/2009 MADL DIE MAKER APPRENTICE, LUIS F L 278.00 OBESITY 12/11/2009 MADL DIE MAKER APPRENTICE, LUIS F L 724.4 LUMBAR RADICULOPATHY 12/11/2009 GARCIA DO, JITENDRA K 244.9 HYPOTHYROIDISM 12/11/2009 GARCIA DO, JITENDRA K 278.00 OBESITY 12/11/2009 GARCIA DO, JITENDRA K 724.4 LUMBAR RADICULOPATHY 12/11/2009 GARCIA DO, JITENDRA K 244.9 HYPOTHYROIDISM 12/11/2009 GARCIA DO, JITENDRA K 278.00 OBESITY 12/11/2009 GARCIA DO, JITENDRA K 724.4 LUMBAR RADICULOPATHY 12/11/2009 MADL DIE MAKER APPRENTICE, LUIS F L 244.9 HYPOTHYROIDISM 12/11/2009 MADL DIE MAKER APPRENTICE, LUIS F L 278.00 OBESITY 12/11/2009 MADL DIE MAKER APPRENTICE, LUIS F L 724.4 LUMBAR RADICULOPATHY 12/11/2009 244.9 HYPOTHYROIDISM 12/11/2009 278.00 OBESITY 12/11/2009 724.4 LUMBAR RADICULOPATHY 12/11/2009 MADL DIE MAKER APPRENTICE, LUIS F L 244.9 HYPOTHYROIDISM 12/11/2009 MADL DIE MAKER APPRENTICE, LUIS F L 278.00 OBESITY 12/11/2009 MADL DIE MAKER APPRENTICE, LUIS F L 724.4 LUMBAR RADICULOPATHY 12/11/2009 GARCIA DO, JITENDRA K 244.9 HYPOTHYROIDISM 12/11/2009 GARCIA DO, JITENDRA K 278.00 OBESITY 12/11/2009 GARCIA DO, JITENDRA K 724.4 LUMBAR RADICULOPATHY 12/11/2009 MADL DIE MAKER APPRENTICE, LUIS F L 244.9 HYPOTHYROIDISM 12/11/2009 MADL DIE MAKER APPRENTICE, LUIS F L 278.00 OBESITY 12/11/2009 MADL DIE MAKER APPRENTICE, LUIS F L 724.4 LUMBAR RADICULOPATHY 12/11/2009 MADL DIE MAKER APPRENTICE, LUIS F L 244.9 HYPOTHYROIDISM 12/11/2009 MADL DIE MAKER APPRENTICE, LUIS F L 278.00 OBESITY 12/11/2009 MADL DIE MAKER APPRENTICE, LUIS F L 724.4 LUMBAR RADICULOPATHY 12/12/2009 GARCIA DO, JITENDRA K 272.4 HYPERLIPIDEMIA 12/12/2009 TAMIKO CARROLL MD 272.4 HYPERLIPIDEMIA 12/12/2009 GARCIA DO, JITENDRA K 272.4 HYPERLIPIDEMIA 12/12/2009 GARCIA DO, JITENDRA K 272.4 HYPERLIPIDEMIA 12/12/2009 GARCIA DO, JITENDRA K 272.4 HYPERLIPIDEMIA 12/12/2009 MATTHEW DIE MAKER APPRENTICE, LORA R 272.4 HYPERLIPIDEMIA 12/12/2009 MADL DIE MAKER APPRENTICE, LUIS F L 272.4 HYPERLIPIDEMIA 12/12/2009 MADL DIE MAKER APPRENTICE, LUIS F L 272.4 HYPERLIPIDEMIA 12/12/2009 MADL DIE MAKER APPRENTICE, LUIS F L 272.4 HYPERLIPIDEMIA 12/12/2009 MADL DIE MAKER APPRENTICE, LUIS F L 272.4 HYPERLIPIDEMIA 12/12/2009 GARCIA DO, JITENDRA K 272.4 HYPERLIPIDEMIA 12/12/2009 GARCIA DO, JITENDRA K 272.4 HYPERLIPIDEMIA 12/12/2009 MADL DIE MAKER APPRENTICE, LUIS F L 272.4 HYPERLIPIDEMIA 12/12/2009 272.4 HYPERLIPIDEMIA 12/12/2009 MADL DIE MAKER APPRENTICE, LUIS F L 272.4 HYPERLIPIDEMIA 12/12/2009 GARCIA DO, JITENDRA K 272.4 HYPERLIPIDEMIA 12/12/2009 MADL DIE MAKER APPRENTICE, LUIS F L 272.4 HYPERLIPIDEMIA 12/12/2009 MADL DIE MAKER APPRENTICE, LUIS F L 272.4 HYPERLIPIDEMIA 01/01/2010 GARCIA DO, JITENDRA K V58.69 LONG-TERM (CURRENT) USE OF OTHER MEDICATIONS 01/01/2010 TAMIKO CARROLL MD V58.69 LONG-TERM (CURRENT) USE OF OTHER MEDICATIONS 01/01/2010 GARCIA DO, JITENDRA K V58.69 LONG-TERM (CURRENT) USE OF OTHER MEDICATIONS 01/01/2010 GARCIA DO, JITENDRA K V58.69 LONG-TERM (CURRENT) USE OF OTHER MEDICATIONS 01/01/2010 JITENDRA GARCIA DO K V58.69 LONG-TERM (CURRENT) USE OF OTHER MEDICATIONS 01/01/2010 MATTHEW JUAN WILSONINA R V58.69 LONG-TERM (CURRENT) USE OF OTHER MEDICATIONS 01/01/2010 MADL DIE MAKER APPRENTICE, LUIS F L V58.69 LONG-TERM (CURRENT) USE OF OTHER MEDICATIONS 01/01/2010 MADL DIE MAKER APPRENTICE, LUIS F L V58.69 LONG-TERM (CURRENT) USE OF OTHER MEDICATIONS 01/01/2010 MADL DIE MAKER APPRENTICE, LUIS F L V58.69 LONG-TERM (CURRENT) USE OF OTHER MEDICATIONS 01/01/2010 MADL DIE MAKER APPRENTICE, LUIS F L V58.69 LONG-TERM (CURRENT) USE OF OTHER MEDICATIONS 01/01/2010 JITENDRA GARCIA DO K V58.69 LONG-TERM (CURRENT) USE OF OTHER MEDICATIONS 01/01/2010 JITENDRA GARCIA DO K V58.69 LONG-TERM (CURRENT) USE OF OTHER MEDICATIONS 01/01/2010 MADL DIE MAKER APPRENTICE, LUIS F L V58.69 LONG-TERM (CURRENT) USE OF OTHER MEDICATIONS 01/01/2010 V58.69 LONG-TERM ( CURRENT) USE OF OTHER MEDICATIONS 01/01/2010 MADL DIE MAKER APPRENTICE, LUIS F L V58.69 LONG-TERM (CURRENT) USE OF OTHER MEDICATIONS 01/01/2010 JITENDRA GARCIA DO K V58.69 LONG-TERM (CURRENT) USE OF OTHER MEDICATIONS 01/01/2010 MADL DIE MAKER APPRENTICE, LUIS F L V58.69 LONG-TERM (CURRENT) USE OF OTHER MEDICATIONS 01/01/2010 MADL DIE MAKER APPRENTICE, LUIS F L V58.69 LONG-TERM (CURRENT) USE OF OTHER MEDICATIONS 01/03/2010 JITENDRA GARCIA DO 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 01/03/2010 GLEN BARAHONA, TAMIKO Francis 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 01/03/2010 JITENDRA GARCIA DO 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 01/03/2010 JITENDRA GARCIA DO 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 01/03/2010 JITENDRA GARCIA DO 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 01/03/2010 MATTHEW DIE MAKER APPRENTICE, LORA R 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 01/03/2010 MADL DIE MAKER APPRENTICE, LUIS F L 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 01/03/2010 MADL DIE MAKER APPRENTICE, LUIS F L 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 01/03/2010 MADL DIE MAKER APPRENTICE, LUIS F L 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 01/03/2010 MADL DIE MAKER APPRENTICE, LUIS F L 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 01/03/2010 GARCIA DO, JITENDRA K 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 01/03/2010 GARCIA DO, JITENDRA K 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 01/03/2010 MADL DIE MAKER APPRENTICE, LUIS F L 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 01/03/2010 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 01/03/2010 MADL DIE MAKER APPRENTICE, LUIS F L 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 01/03/2010 GARCIA DO, JITENDRA K 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 01/03/2010 MADL DIE MAKER APPRENTICE, LUIS F L 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 01/03/2010 MADL DIE MAKER APPRENTICE, LUIS F L 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 12/16/2010 Ot 079.99 VIRAL INFECTION NOS 12/16/2010 Ot 786.2 COUGH 12/18/2010 JOSE HENDRIX JITENDRA K 461.9 SINUSITIS ACUTE 12/18/2010 TAMIKO CARROLL MD 461.9 SINUSITIS ACUTE 12/18/2010 JOSE HENDRIX JITENDRA K 461.9 SINUSITIS ACUTE 12/18/2010 JOSE HENDRIX JITENDRA K 461.9 SINUSITIS ACUTE 12/18/2010 GARCIA DO JITENDRA K 461.9 SINUSITIS ACUTE 12/18/2010 MATTHEW ANTOINEN, LORA R 461.9 SINUSITIS ACUTE 12/18/2010 MADL DIE MAKER APPRENTICE, LUIS F L 461.9 SINUSITIS ACUTE 12/18/2010 MADL DIE MAKER APPRENTICE, LUIS F L 461.9 SINUSITIS ACUTE 12/18/2010 MADL DIE MAKER APPRENTICE, LUIS F L 461.9 SINUSITIS ACUTE 12/18/2010 MADL DIE MAKER APPRENTICE, LUIS F L 461.9 SINUSITIS ACUTE 12/18/2010 GARCIA DO, JITENDRA K 461.9 SINUSITIS ACUTE 12/18/2010 GARCIA DO, JITENDRA K 461.9 SINUSITIS ACUTE 12/18/2010 MADL DIE MAKER APPRENTICE, LUIS F L 461.9 SINUSITIS ACUTE 12/18/2010 461.9 SINUSITIS ACUTE 12/18/2010 MADL DIE MAKER APPRENTICE, LUIS F L 461.9 SINUSITIS ACUTE 12/18/2010 GARCIA DO, JITENDRA K 461.9 SINUSITIS ACUTE 12/18/2010 MADL DIE MAKER APPRENTICE, LUIS F L 461.9 SINUSITIS ACUTE 12/18/2010 MADL DIE MAKER APPRENTICE, LUIS F L 461.9 SINUSITIS ACUTE 01/16/2011 Ot 789.01 ABDOMINAL PAIN, RIGHT UPPER QUADRANT 04/12/2011 Ot 346.90 MIGRAINE UNSPECIFIED W/O INTRACT MGRN W/ 04/12/2011 Ot 784.0 HEADACHE 04/12/2011 Ot 786.50 CHEST PAIN NOS 10/20/2011 Ot 846.0 SPRAIN LUMBOSACRAL 10/20/2011 Ot 847.0 SPRAIN OF NECK 10/20/2011 Ot 847.1 SPRAIN THORACIC REGION 10/20/2011 Ot 959.09 INJURY OF FACE AND NECK 10/20/2011 Ot E000.8 OTHER EXTERNAL CAUSE STATUS 10/20/2011 Ot E812.0 MV COLLISION NOS-HYDRAULIC BLOCKER 12/19/2011 Ot 724.5 12/19/2011 Ot E929.0 12/19/2011 Ot V57.1 05/25/2012 Ot 346.90 06/29/2012 JOSE DOJITENDRA K 530.81 GERD 06/29/2012 GLEN BARAHONA, TAMIKO Francis 530.81 GERD 06/29/2012 GARCIA DOJITENDRA K 530.81 GERD 06/29/2012 GARCIA DOJITENDRA K 530.81 GERD 06/29/2012 GARCIA DOMARIJAA K 530.81 GERD 06/29/2012 LORA CASTRO APRN 530.81 GERD 06/29/2012 HEATHER DIE MAKER APPRENTICE, LUIS F L 530.81 GERD 06/29/2012 MADL DIE MAKER APPRENTICE, LUIS F L 530.81 GERD 06/29/2012 MADL DIE MAKER APPRENTICE, LUIS F L 530.81 GERD 06/29/2012 MADL DIE MAKER APPRENTICE, LUIS F L 530.81 GERD 06/29/2012 GARCIA DO, JITENDRA K 530.81 GERD 06/29/2012 GARCIA DO, JITENDRA K 530.81 GERD 06/29/2012 MADL DIE MAKER APPRENTICE, LUIS F L 530.81 GERD 06/29/2012 530.81 GERD 06/29/2012 MADL DIE MAKER APPRENTICE, LUIS F L 530.81 GERD 06/29/2012 GARCIA DO, JITENDRA K 530.81 GERD 06/29/2012 MADL DIE MAKER APPRENTICE, LUIS F L 530.81 GERD 06/29/2012 MADL DIE MAKER APPRENTICE, LUIS F L 530.81 GERD 12/21/2012 Ot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
--- NOTE | 2018-07-24 17:14 | ED Lower Extremity ---
General Chief Complaint: Trauma-Non Activation Stated Complaint: FALL/L SIDE PELVIC PAIN/R HIP PAIN Nursing Triage Note: PT STATES SHE SLIPPED AND FELL OUTDOORS ON A HANDICAP RAMP LAST NIGHT. TODAY PRESENTS TO THE ED WITH INCREASING PAIN IN THE LEFT HIP WITH DECREASED TOLERENCE TO WEIGHT. Nursing Sepsis Screen: No Definite Risk Source: patient Exam Limitations: no limitations History of Present Illness Date Seen by Provider: Jul 24, 2018 Time Seen by Provider: 17:09 Initial Comments The patient is a 42-year-old white female who presents with complaints of pain in her pelvis and hips after a fall last night. She reported that she was going down a ramp last evening and slipped on the scan so that we had. She fell heavily but was able to get back up and walk. 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 She went to work today but was not able to do any lifting. Her boss encouraged her to come here. Onset: yesterday Pain/Injury Location: right hip Method of Injury: fell Allergies and Home Medications Allergies Coded Allergies: Sulfa (Sulfonamide Antibiotics) (Unverified Allergy, Intermediate, HIVES, 01/23/09) cyclobenzaprine (Unverified Allergy, Unknown, SWELLING, 05/23/16) Home Medications Fluticasone Propionate 9.9 Ml [place].susp, 2 ML NSEACH DAILY Prescribed by: KAYDEN BEJARANO on 08/05/16 1225 Paroxetine HCl 20 Mg Tablet, 20 MG PO DAILY, (Reported) Prednisone 20 Mg Tab, 40 MG PO DAILY Prescribed by: NADIA ENGLAND on 01/26/17 1836 Prednisone 20 Mg Tab, 40 MG PO DAILY Prescribed by: DEMETRA EUGENE on 04/29/17 1107 Prednisone 20 Mg Tab, 40 MG PO DAILY Prescribed by: DEMETRA EUGENE on 06/10/17 1749 Patient Home Medication List Home Medication List Reviewed: Yes Review of Systems Constitutional: see HPI EENTM: no symptoms reported Respiratory: no symptoms reported Cardiovascular: no symptoms reported Gastrointestinal: no symptoms reported Genitourinary: no symptoms reported Musculoskeletal: other (pain to palpation in the left groin and in the area of right trochanter.) Skin: no symptoms reported Psychiatric/Neurological: No Symptoms Reported Past Kavqtpr-Iheytl-Nzprkq Hx Patient Social History Alcohol Use: Denies Use Recreational Drug Use: No Smoking Status: Never a Smoker Recent Foreign Travel: No Contact w/Someone Who Travel: No Recent Infectious Disease Expo: No Recent Hopitalizations: No Immunizations Up To Date Tetanus Booster (TDap): Less than 5yrs PED Vaccines UTD: Yes Seasonal Allergies Seasonal Allergies: Yes Past Medical History Surgeries: Yes Section, Gallbladder, Tubal Ligation Respiratory: No Cardiac: Yes Hypertension Neurological: Yes Headaches /Migraines : Yes 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 oz. 100.840055zh; 42.51 BMI Method:Stated General Appearance: WD/WN, no apparent distress HEENT: normal ENT inspection Neck: full range of motion Cardiovascular: normal peripheral pulses, regular rate, rhythm, no edema, no gallop, no JVD, no murmur Respiratory: chest non-tender, normal breath sounds, no respiratory distress, other (strong odor of tobacco products) Gastrointestinal: normal bowel sounds Neurologic/Psychiatric: heat treater head II-XII nml as tested, no motor/sensory deficits, alert, normal mood/affect, oriented x 3 Skin: normal color, warm/dry Lymphatic: no adenopathy Pain to palpation in the left groin in the area of the femoral triad. Pain to palpation over the right greater trochanter. There was no shortening of legs or external rotation Progress/Results/Core Measures Results/Orders My Orders Orders - AMADO CASTANEDA MD Pelvis With Right Hip 2-3views (07/24/18 17:02) Vital Signs/I&O 07/24/18 16:26 Temp 96.9 Pulse 75 Resp 20 B/P (MAP) 149/88 (108) Pulse Ox 100 O2 Delivery Room Air Blood Pressure Mean: 108 Departure Communication (Admissions) X-rays as interpreted by me show no evidence of fracture of pelvis or Impression Primary Impression: contusion right greater trochanter Disposition: 01 HOME, SELF-CARE Condition: Stable/Unchanged Departure-Patient Inst. Decision time for Depature: 17:48 Referrals: JAMES WRIGHT MD (PCP/Family) Primary Care Physician Add. Discharge Instructions: All discharge instructions reviewed with patient and/or family. Voiced understanding. After 48 hours you may use heat to the area. Use ibuprofen or naproxen for pain AMADO CASTANEDA MD Jul 24, 2018 17:14
--- NOTE | 2018-07-24 17:49 | Diagnostic Imaging Report ---
INDICATION: Fell last night, pain in the right hip and left flank FINDINGS: AP view of the pelvis and 2 views of the right hip demonstrates no fracture, dislocation or foreign body. IMPRESSION: There are no acute findings. Dictated by: Dictated on workstation # [id number]
[2018-07-24 18:26] VITALS: BP 149/88
== END 2018-07-24 18:26 | disposition home or self-care (01) ==
LOC: EDUNIT# 16:12 → ER 16:14
DX: S70.01XA Contusion of right hip, initial encounter (principal); I10 Essential (primary) hypertension; G43.909 Migraine, unspecified, not intractable, without status migrainosus; E03.9 Hypothyroidism, unspecified; F32.9 Major depressive disorder, single episode, unspecified; Z88.2 Allergy status to sulfonamides; Z88.8 Allergy status to other drugs, medicaments and biological substances; Z79.52 Long term (current) use of systemic steroids; Z98.890 Other specified postprocedural states; Z98.51 Tubal ligation status; Z79.51 Long term (current) use of inhaled steroids; W01.0XXA Fall on same level from slipping, tripping and stumbling without subsequent striking against object, initial encounter

== ENCOUNTER 2018-11-12 09:13 | Emergency (ER) | payer OTHER ==
[~2018-11-12] VITALS: Ht 167.6 cm; Wt 98.4 kg
--- NOTE | 2018-11-12 10:49 | ED EENT ---
History of Present Illness General Chief Complaint: Oral/Throat Problems Stated Complaint: THROAT SWELLING Nursing Triage Note: PT PRESENTS TO ER WITH COMPLAIMT OF DIFFICULTY SWALLOWING AND SWOLLEN THROAT. PT STATES SHE WAS EATING BREAKFAST THIS MORNING AND STARTED TO CHOKE. PT STATES HER HAD TO "FORCEFULLY PAT HER BACK". Source: patient Exam Limitations: no limitations History of Present Illness Date Seen by Provider: Nov 12, 2018 Time Seen by Provider: 10:46 Initial Comments To ER with difficulty swallowing since yesterday. She has no pain in her throat but feels as though the food gets stuck occasionally. She feels like something in her throat is swollen. She does okay with liquids but solids have trouble passing. She's never had this before. She did recently within the past few days have symptoms of upper respiratory infection consisting of sore throat runny nose and cough. Timing/Duration: abrupt, yesterday Severity: moderate Location: throat Associated Symptoms: cough, sore throat Allergies and Home Medications Allergies Coded Allergies: Sulfa (Sulfonamide Antibiotics) (Unverified Allergy, Intermediate, HIVES, 01/23/09) cyclobenzaprine (Unverified Allergy, Unknown, SWELLING, 05/23/16) Home Medications Fluticasone Propionate 9.9 Ml [place].susp, 2 ML NSEACH DAILY Prescribed by: KAYDEN BEJARANO on 08/05/16 1225 Paroxetine HCl 20 Mg Tablet, 20 MG PO DAILY, (Reported) Prednisone 20 Mg Tab, 40 MG PO DAILY Prescribed by: NADIA ENGLAND on 01/26/17 1836 Prednisone 20 Mg Tab, 40 MG PO DAILY Prescribed by: DEMETRA EUGENE on 04/29/17 1107 Prednisone 20 Mg Tab, 40 MG PO DAILY Prescribed by: DEMETRA EUGENE on 06/10/17 1749 Patient Home Medication List Home Medication List Reviewed: Yes Review of Systems Review of Systems Constitutional: see HPI Eyes: No Symptoms Reported Ears: No Symptoms Reported Mouth: no symptoms reported Throat: see HPI Respiratory: no symptoms reported Cardiovascular: no symptoms reported Musculoskeletal: no symptoms reported Past Mrzdrtt-Ivdepe-Ryclhx Hx Patient Social History Alcohol Use: Denies Use Recreational Drug Use: No Smoking Status: Never a Smoker Recent Foreign Travel: No Contact w/Someone Who Travel: No Recent Infectious Disease Expo: No Recent Hopitalizations: No Immunizations Up To Date Tetanus Booster (TDap): Less than 5yrs PED Vaccines UTD: Yes Seasonal Allergies Seasonal Allergies: Yes Past Medical History Surgeries: Yes Section, Gallbladder, Tubal Ligation Respiratory: No Cardiac: Yes Hypertension Neurological: Yes Headaches /Migraines 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 oz. 98.650464nx; 42.51 BMI Method:Stated General Appearance: WD/WN, no apparent distress Eyes: bilateral eye normal inspection, bilateral eye PERRL, bilateral eye EOMI Ears: bilateral ear auricle normal, bilateral ear canal normal, bilateral ear TM normal Neck: non-tender, full range of motion, other (no palpable swelling or lymphadenopathy. No stridor. Speaks in full sentences. No drooling and she is swallowing her own secretions.) Cardiovascular: regular rate, rhythm, no murmur Respiratory: normal breath sounds, no respiratory distress, no accessory muscle use Gastrointestinal: normal bowel sounds, non tender, soft Neurologic/Psychiatric: alert, normal mood/affect, oriented x 3 Skin: warm/dry Progress/Results/Core Measures Results/Orders Vital Signs/I&O 11/12/18 09:25 Temp 98.5 Pulse 80 Resp 22 B/P (MAP) 132/80 (97) Pulse Ox 100 O2 Delivery Room Air Blood Pressure Mean: 97 Departure Impression Primary Impression: Dysphagia Qualified Codes: R13.10 - Dysphagia, unspecified Disposition: 01 HOME, SELF-CARE Condition: Stable Departure-Patient Inst. Decision time for Depature: 10:48 Referrals: JAMES WRIGHT MD (PCP) Primary Care Physician GILBERTO FERRER MD Patient Instructions: Dysphagia Add. Discharge Instructions: 1. Return to ER for any concerns. If no improvement in 2-[address] Ferrer for follow-up. All discharge instructions reviewed with patient and/or family. Voiced understanding. Work/School Note: Work Release Form Date Seen in the Emergency Department: Nov 12, 2018 Return to Work: Nov 13, 2018 NADIA ENGLAND APRN Nov 12, 2018 10:49
[2018-11-12] MEDS ORDERED: DEXAMETHASONE 10 MG/ML (DECADRON) 1 ML VIAL IM ONE (11:00)
[2018-11-12 11:04] VITALS: BP 140/80
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
== END 2018-11-12 11:03 | disposition home or self-care (01) ==
LOC: EDUNIT# 09:13 → ER 09:15
DX: R13.10 Dysphagia, unspecified (principal); I10 Essential (primary) hypertension; G43.909 Migraine, unspecified, not intractable, without status migrainosus; E03.9 Hypothyroidism, unspecified; F32.9 Major depressive disorder, single episode, unspecified; Z88.2 Allergy status to sulfonamides; Z88.8 Allergy status to other drugs, medicaments and biological substances; Z79.52 Long term (current) use of systemic steroids; Z79.51 Long term (current) use of inhaled steroids; Z98.51 Tubal ligation status; Z98.890 Other specified postprocedural states
CPT/HCPCS: 90471; 99284

== ENCOUNTER → 2018-12-02 | Outpatient (CLI) | payer OTHER ==
--- NOTE | 2018-12-02 12:42 | Diagnostic Imaging Report ---
INDICATION: Routine screening. COMPARISON: Comparison is made with prior mammogram from 07/23/2017. TECHNIQUE: 2D and 3D bilateral screening mammography was performed with computer-aided detection (CAD) system. FINDINGS: Scattered fibroglandular densities are identified bilaterally. The circumscribed lobulated density in the outer right breast is again noted and appears stable. No new mass or malignant appearing microcalcifications are seen. The axillae are unremarkable. IMPRESSION: No mammographic features suspicious for malignancy are identified. ACR BI-RADS Category 2: Benign findings. Result letter will be mailed to the patient. Note: At least 10% of breast cancer is not imaged by mammography. Dictated by: Dictated on workstation # [id number]
== END ==
LOC: RAD 09:56
PROVIDERS: ATTEND Nurse Practitioner Family
DX: Z12.31 Encounter for screening mammogram for malignant neoplasm of breast (principal)
CPT/HCPCS: 77067

== ENCOUNTER → 2018-12-04 | Outpatient (CLI) | payer OTHER ==
[2018-12-04 09:27] LABS: BASOPHILS % (AUTO) 1 % (0-10); EOSINOPHILS # (AUTO) 0.1 10^3/uL (0.0-0.3); EOSINOPHILS % (AUTO) 2 % (0-10); HEMATOCRIT 32 % (35-52); LYMPHOCYTES # (AUTO) 1.4 X 10^3 (1.0-4.0); LYMPHOCYTES % (AUTO) 24 % (12-44); MEAN CORPUSCULAR HEMOGLOBIN 21 PG (25-34); MEAN CORPUSCULAR HGB CONC 31 G/DL (32-36); MEAN CORPUSCULAR VOLUME 69 FL (80-99); MEAN PLATELET VOLUME 10.9 FL (7.4-10.4); MONOCYTES # (AUTO) 0.5 X 10^3 (0.0-1.0); MONOCYTES % (AUTO) 9 % (0-12); NEUTROPHILS # (AUTO) 3.8 X 10^3 (1.8-7.8); NEUTROPHILS % (AUTO) 64 % (42-75); PLATELET COUNT 316 10^3/uL (130-400); RED CELL DISTRIBUTION WIDTH 17.7 % (10.0-14.5); WHITE BLOOD COUNT 5.9 10^3/uL (4.3-11.0)
[2018-12-04 09:49] LABS: ALANINE AMINOTRANSFERASE 14 U/L (0-55); ALBUMIN 4.3 GM/DL (3.2-4.5); ALKALINE PHOSPHATASE 70 U/L (40-136); BILIRUBIN,TOTAL 0.2 MG/DL (0.1-1.0); BUN/CREATININE RATIO 15; CALCIUM 8.9 MG/DL (8.5-10.1); CARBON DIOXIDE 22 MMOL/L (21-32); CHLORIDE 109 MMOL/L (98-107); CHOLESTEROL 220 MG/DL (< 200); CREATININE SERUM 0.88 MG/DL (0.60-1.30); GFR ESTIMATED > 60; GLUCOSE 92 MG/DL (70-105); HDL CHOLESTEROL 60 MG/DL (40-60); SODIUM 139 MMOL/L (135-145); TOTAL PROTEIN 7.4 GM/DL (6.4-8.2); TRIGLYCERIDES 103 MG/DL (<150); VLDL CHOLESTEROL 21 MG/DL (5-40)
== END ==
LOC: LAB 09:04
PROVIDERS: ATTEND Family Medicine
DX: R53.83 Other fatigue (principal); R73.9 Hyperglycemia, unspecified; E61.1 Iron deficiency; E78.5 Hyperlipidemia, unspecified
CPT/HCPCS: 36415; 80053; 80061; 82728; 83036; 83540; 84443; 85025

== ENCOUNTER 2022-07-03 12:34 | Outpatient (RCR) | payer MEDICAID ==
[~2022-07-03 12:34] MED LIST changes: +FERRIC CARBOXYMALTOSE INJ 750 MG in NS (IVPB) 250 ML IV SCH; +NS IV 500 ML 500 ML IV SCH; +TIZA-186; -TIZA4TAB3; -TRAZ-190 PO; +TRAZ-227 PO
[2022-07-10] MEDS ORDERED: LEVO112C4 PO (11:13)
[2022-07-10] MEDS ORDERED: CYAN250014 PO (11:13)
[2022-07-10] MEDS ORDERED: FERR750V IV (11:13)
== END 2022-07-15 | disposition home or self-care (01) ==
LOC: ONC 12:34
PROVIDERS: ATTEND Internal Medicine Hematology & Oncology
DX: D50.9 Iron deficiency anemia, unspecified (principal)
CPT/HCPCS: 82728; 83540; 83550; G0463; 36415; 96365; 99204

== ENCOUNTER 2022-07-10 05:47 | Outpatient (CLI) | payer MEDICAID ==
[~2022-07-10] VITALS: Ht 162.6 cm; Wt 88.5 kg
[~2022-07-10 05:47] MED LIST changes: -FERRIC CARBOXYMALTOSE INJ 750 MG in NS (IVPB) 250 ML IV SCH; -NS IV 500 ML 500 ML IV SCH
[2022-07-10] MEDS ORDERED: FERR750V IV (11:13)
[2022-07-10] MEDS ORDERED: CYAN250014 PO (11:13)
[2022-07-10] MEDS ORDERED: LEVO112C4 PO (11:13)
== END 2022-07-10 11:16 | disposition home or self-care (01) ==
LOC: PREOP 05:47
PROVIDERS: ATTEND Surgery
DX: Z01.818 Encounter for other preprocedural examination (principal)

== ENCOUNTER → 2022-07-11 | Outpatient (CLI) | payer MEDICAID, OTHER ==
[~2022-07-11] MED LIST changes: +BARIUM for suspension 96% w/w (Vanilla Silq Medium Density) PO ONE; +BARIUM for suspension 98% w/w (Vanilla Silq High Density) PO ONE; +CYAN250014 PO; +FERR750V IV; +LEVO112C4 PO
--- NOTE | 2022-07-11 09:57 | Diagnostic Imaging Report ---
INDICATION: Food getting stuck in the throat. TECHNIQUE: The patient ingested effervescent crystals as well as thin barium and imaging over the esophagus was performed in multiple obliquities. 39 seconds of fluoroscopic time was utilized. FINDINGS: The preliminary radiograph of the chest is unremarkable. There is an area of persistent esophageal narrowing in the upper esophagus at approximately the C5-C6 level. The indention appears to be anteriorly located, differing from the typical cricopharyngeus bar. Findings are concerning for a short upper esophageal stricture. The remainder of the esophagus is smooth in contour. No definite mass, hiatal hernia, or gastroesophageal reflux was demonstrated. IMPRESSION: Short segment of persistent narrowing in the upper cervical esophagus at approximately C5-C6, concerning for a stricture. No other abnormality is detected. Dictated by: Dictated on workstation # [id number]
--- NOTE | 2022-07-11 10:41 | Diagnostic Imaging Report ---
PROCEDURE: Pelvic comp/transvaginal sonogram. TECHNIQUE: Complete transabdominal and transvaginal pelvic ultrasound was performed. In addition, limited pelvic Doppler was performed. INDICATION: Abnormal uterine bleeding. Uterus is anteverted measuring 7.8 x 4.6 x 5.4 cm. The endometrium is abnormally thickened measuring up to 19 mm. Endometrium appears to be somewhat heterogeneous. There are other cervical cysts present, likely nabothian cysts. No myometrial mass is identified. Right ovary measures 1.8 x 1.3 x 1.4 cm and shows normal vascularity. Left ovary was not visualized. No adnexal mass or free fluid is detected. IMPRESSION: Abnormal thickening and heterogeneity to the endometrium. While this could be owing to hyperplasia, endometrial neoplasm cannot be entirely excluded. Dictated by: Dictated on workstation # [id number]
== END ==
LOC: RAD 07:54
PROVIDERS: ATTEND Nurse Practitioner
DX: N93.9 Abnormal uterine and vaginal bleeding, unspecified (principal); R13.10 Dysphagia, unspecified; R93.89 Abnormal findings on diagnostic imaging of other specified body structures
CPT/HCPCS: 74220; 76830; 76856

== ENCOUNTER 2022-07-18 09:41 | Day surgery (SDC) | payer MEDICAID ==
[~2022-07-18] VITALS: Ht 162.2 cm; Wt 88.5 kg
[~2022-07-18 09:41] MED LIST changes: -BARIUM for suspension 96% w/w (Vanilla Silq Medium Density) PO ONE; -BARIUM for suspension 98% w/w (Vanilla Silq High Density) PO ONE
[2022-07-18] MEDS ORDERED: LACTATED RINGERS 1,000 ML IV STA (10:08)
[2022-07-18] MEDS ORDERED: HURRICAINE EXT TUBE (BENZOCAINE) XX PRN (10:15)
[2022-07-18 11:15] VITALS: BP 144/94
--- NOTE | 2022-07-18 14:09 | Progress Note-Pre Operative ---
Pre-Operative Progress Note Date of Available H&P: Jul 01, 2022 Date H&P Reviewed: Jul 18, 2022 Time H&P Reviewed: 14:08 History & Physical: H&P Reviewed, Patient Examed, No changes noted Pre-Operative Diagnosis: gerd, dysphagia, iron def anemia. screening colono JARRED Barreto DO Jul 18, 2022 14:09
[2022-07-18] MEDS ORDERED: PROPOFOL INJECTION 50 ML IV ONE (15:14)
[2022-07-18] MEDS ORDERED: MIDAZOLAM 2 MG/2 ML (VERSED) VIAL ONE (15:14)
--- NOTE | 2022-07-18 15:46 | Discharge Inst-Simple/Standard ---
Discharge Inst-Standard Patient Instructions/Follow Up Plan of Care/Instructions/FU: F/u [address] Bartlett Activity as Tolerated: Yes Discharge Diet: No Restrictions, Regular Diet JARRED BARTLETT DO Jul 18, 2022 15:46
[2022-07-18 15:50] VITALS: BP 120/64
[2022-07-18 15:55] VITALS: BP 132/60
[2022-07-18 16:20] VITALS: BP 114/65
[2022-07-18 16:27] VITALS: BP 114/65
--- NOTE | 2022-07-19 00:12 | OPERATIVE REPORT ---
DATE OF SERVICE: 07/18/2022 PREOPERATIVE DIAGNOSES: GERD, dysphagia, iron deficiency anemia, screening colonoscopy. POSTOPERATIVE DIAGNOSES: Proximal esophageal stricture, normal colon. PROCEDURE: Partial esophagoscopy, colonoscopy. SURGEON: Jarred Bartlett DO. ANESTHESIA: Per NAIL PROFESSIONAL. ESTIMATED BLOOD LOSS: None. COMPLICATIONS: None. INDICATIONS: The patient is a 46-year-old female who has been having GERD symptoms, dysphagia and iron deficiency anemia. The patient's iron deficiency anemia, likely secondary to gynecological. The patient needing screening colonoscopy. The patient understands the risks and benefits of the procedure and wished to proceed. Consent was signed is on chart. DESCRIPTION OF PROCEDURE: The patient was taken to the endoscopy suite, placed in the left lateral recumbent position. Timeout was performed. Scope was inserted in the mouth and into the proximal portion of the esophagus where immediately encountering an esophageal stricture. The scope was repositioned a couple times, but the scope was unable to be passed through this. Due to the location unable to do dilatation with current scope and equipment. Scope was then slowly retracted back until completely removed. Digital rectal exam was performed. No palpable pulse or ulcerations. Scope was inserted in the rectum and advanced all the way to the cecum with minimal difficulty. Prep was adequate. Scope was retracted back. No polyps not show ulceration of the cecum, ascending, transverse, descending and sigmoid colon. Once in the rectum, scope was retroflexed noting no other pathology. Scope was returned to its normal position. Slow transit completely removed. The patient tolerated the procedure well without complications. She was taken to recovery room in stable condition. RECOMMENDATIONS: The patient will need repeat colonoscopy in 10 years unless family history of colon cancer, which was to be 5 years. The patient with high proximal esophageal stricture, unable to dilate here and would recommend setting up with GI to where more likely be able to be dilated with different equipment that unable to be present here. The patient will follow up in 1-2 weeks to arrange. Job ID: [id number] DocumentID: [id number] Dictated Date: 07/18/2022 17:32:15 Bridge Expert Date: 07/19/2022 00:10:00 Dictated By: JARRED BARTLETT DO
--- NOTE | 2022-08-07 07:46 | Anesthesia-General Post-Op ---
MAC Patient Condition Mental Status/LOC: Same as Preop Cardiovascular: Satisfactory Nausea/Vomiting: Absent Respiratory: Satisfactory Pain: Controlled Complications: Absent Post Op Complications Complications None Follow Up Care/Instructions Patient Instructions None needed. Anesthesiology Discharge Order Discharge Order Patient is doing well, no complaints, stable vital signs, no apparent adverse anesthesia problems. No complications reported per nursing. COURT GARCIA CRNA Aug 07, 2022 07:46
== END 2022-07-18 16:27 | disposition home or self-care (01) ==
LOC: SDC 09:41 → ENDO 16:27
PROVIDERS: ATTEND Surgery
DX: Z12.11 Encounter for screening for malignant neoplasm of colon (principal); D50.9 Iron deficiency anemia, unspecified; K21.9 Gastro-esophageal reflux disease without esophagitis; K22.2 Esophageal obstruction; N92.0 Excessive and frequent menstruation with regular cycle
CPT/HCPCS: 84703

== ENCOUNTER 2022-08-20 07:38 | Outpatient (RCR) | payer MEDICAID ==
[2022-08-16 12:07] LABS: BASOPHILS # (AUTO) 0.1 10^3/uL (0.0-0.1); BASOPHILS % (AUTO) 1 % (0-10); EOSINOPHILS # (AUTO) 0.1 10^3/uL (0.0-0.3); EOSINOPHILS % (AUTO) 1 % (0-10); HEMATOCRIT 43 % (35-52); HEMOGLOBIN 14.2 g/dL (11.5-16.0); LYMPHOCYTES # (AUTO) 1.7 10^3/uL (1.0-4.0); LYMPHOCYTES % (AUTO) 26 % (12-44); MEAN CORPUSCULAR HEMOGLOBIN 26 pg (25-34); MEAN CORPUSCULAR HGB CONC 33 g/dL (32-36); MEAN CORPUSCULAR VOLUME 78 fL (80-99); MONOCYTES # (AUTO) 0.3 10^3/uL (0.0-1.0); MONOCYTES % (AUTO) 4 % (0-12); NEUTROPHILS # (AUTO) 4.3 10^3/uL (1.8-7.8); NEUTROPHILS % (AUTO) 68 % (42-75); PLATELET COUNT 316 10^3/uL (130-400); WHITE BLOOD COUNT 6.4 10^3/uL (4.3-11.0)
== END 2022-09-14 | disposition home or self-care (01) ==
LOC: ONC 07:38
PROVIDERS: ATTEND Internal Medicine Hematology & Oncology
DX: N92.1 Excessive and frequent menstruation with irregular cycle (principal); N85.00 Endometrial hyperplasia, unspecified; D50.0 Iron deficiency anemia secondary to blood loss (chronic)
CPT/HCPCS: 82728; 83540; 83550; 85025; 99213

== ENCOUNTER 2022-12-02 13:42 | Outpatient (RCR) | payer MEDICAID ==
[2022-11-19 14:45] LABS: BASOPHILS % (AUTO) 1 % (0-10); EOSINOPHILS # (AUTO) 0.1 10^3/uL (0.0-0.3); EOSINOPHILS % (AUTO) 2 % (0-10); HEMATOCRIT 38 % (35-52); HEMOGLOBIN 13.1 g/dL (11.5-16.0); LYMPHOCYTES # (AUTO) 1.8 10^3/uL (1.0-4.0); LYMPHOCYTES % (AUTO) 30 % (12-44); MEAN CORPUSCULAR HEMOGLOBIN 29 pg (25-34); MEAN CORPUSCULAR HGB CONC 34 g/dL (32-36); MEAN CORPUSCULAR VOLUME 84 fL (80-99); MONOCYTES # (AUTO) 0.3 10^3/uL (0.0-1.0); MONOCYTES % (AUTO) 6 % (0-12); NEUTROPHILS # (AUTO) 3.7 10^3/uL (1.8-7.8); NEUTROPHILS % (AUTO) 62 % (42-75); PLATELET COUNT 271 10^3/uL (130-400)
[~2022-12-02 13:42] MED LIST changes: +FERRIC CARBOXYMALTOSE INJ 750 MG in NS (IVPB) 250 ML IV SCH; +PARO-124 PO; -PARO-49 PO
== END 2022-12-13 | disposition home or self-care (01) ==
LOC: ONC 13:42
PROVIDERS: ATTEND Internal Medicine Hematology & Oncology
DX: D50.9 Iron deficiency anemia, unspecified (principal)
CPT/HCPCS: 36415; 82728; 83540; 83550; 85025; 96365

== ENCOUNTER 2023-01-21 09:01 | Outpatient (RCR) | payer MEDICAID ==
[2023-01-14 16:02] LABS: BASOPHILS % (AUTO) 1 % (0-10); EOSINOPHILS # (AUTO) 0.1 10^3/uL (0.0-0.3); EOSINOPHILS % (AUTO) 3 % (0-10); HEMATOCRIT 43 % (35-52); HEMOGLOBIN 14.7 g/dL (11.5-16.0); LYMPHOCYTES # (AUTO) 1.4 10^3/uL (1.0-4.0); LYMPHOCYTES % (AUTO) 26 % (12-44); MEAN CORPUSCULAR HEMOGLOBIN 30 pg (25-34); MEAN CORPUSCULAR HGB CONC 34 g/dL (32-36); MEAN CORPUSCULAR VOLUME 87 fL (80-99); MEAN PLATELET VOLUME 10.3 fL (9.0-12.2); MONOCYTES # (AUTO) 0.4 10^3/uL (0.0-1.0); MONOCYTES % (AUTO) 7 % (0-12); NEUTROPHILS # (AUTO) 3.6 10^3/uL (1.8-7.8); NEUTROPHILS % (AUTO) 64 % (42-75); PLATELET COUNT 271 10^3/uL (130-400); WHITE BLOOD COUNT 5.6 10^3/uL (4.3-11.0)
[~2023-01-21 09:01] MED LIST changes: -FERRIC CARBOXYMALTOSE INJ 750 MG in NS (IVPB) 250 ML IV SCH
== END 2023-02-12 | disposition home or self-care (01) ==
LOC: ONC 09:01
PROVIDERS: ATTEND Internal Medicine Hematology & Oncology
DX: D50.9 Iron deficiency anemia, unspecified (principal)
CPT/HCPCS: 82728; 83540; 83550; 85025

== ENCOUNTER 2023-02-19 15:32 | Emergency (ER) | payer MEDICAID ==
[~2023-02-19] VITALS: Ht 157 cm; Wt 84.0 kg
--- NOTE | 2023-02-19 15:48 | ED Upper Extremity ---
General Chief Complaint: Upper Extremity Stated Complaint: LEFT SHOULDER / NECK PAIN Nursing Triage Note: AMBULATED TO ROOM 05 WITH COMPLAINTS OF LEFT NECK SHOULDER PAIN X2 DAYS. NO INJURY. Source: patient Exam Limitations: no limitations History of Present Illness Date Seen by Provider: Feb 19, 2023 Time Seen by Provider: 15:40 Initial Comments 47-year-old female presents to the ER with complaints of left-sided neck pain left shoulder and left upper back pain for the last couple days. She denies known injury. States the pain has been constant, but has gotten worse. States pain is worse with movement of her shoulder. Been taking Tylenol and ibuprofen and using heat and ice without much relief. She denies fevers, chest pain, shortness of air, numbness and tingling in the arm or fingers. Allergies and Home Medications Allergies Coded Allergies: Sulfa (Sulfonamide Antibiotics) (Unverified Allergy, Intermediate, HIVES, 01/23/09) cyclobenzaprine (Unverified Allergy, Unknown, SWELLING, 05/23/16) Patient Home Medication List Home Medication List Reviewed: Yes Baclofen (Baclofen) 10 Mg Tablet, 10 MG PO TID Prescribed by: Marva Lee on 02/19/23 1720 Cyanocobalamin (Vitamin B-12) (Vitamin B12) 2,500 Mcg Tab.chew, 2,500 MCG PO DAILY, (Reported) Entered as Reported by: MAYA BAKER on 07/10/22 111 Ferric Carboxymaltose (Injectafer) 750 Mg Iron/15 Ml Vial, 750 MG IV UD, (Reported) Entered as Reported by: MAYA BAKER on 07/10/22 1113 Levothyroxine Sodium (Levothyroxine) 112 Mcg Capsule, 112 MCG PO DAILY, (Reported) Entered as Reported by: MAYA BAKER on 07/10/22 1113 Review of Systems Constitutional: see HPI Past [id number] Hx Patient Social History Tobacco Use?: No Substance use?: No Alcohol Use?: No Immunizations Up To Date Tetanus Booster (TDap): Less than 5yrs PED Vaccines UTD: Yes First/Initial COVID19 Vaccinat: YES Second COVID19 Vaccination Ranulfo: YES Third COVID19 Vaccination Date: NO Seasonal Allergies Seasonal Allergies: Yes Past Medical History Surgeries: Yes Section, Gallbladder, Tubal Ligation Respiratory: No Cardiac: Yes Hypertension Neurological: Yes Headaches /Migraines 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 oz. [id number]; 34.00 BMI Method:Stated General Appearance: WD/WN, no apparent distress Neck: full range of motion, supple, normal inspection, tender lateral; No tender midline Cardiovascular: regular rate, rhythm Respiratory: normal breath sounds, no respiratory distress, no accessory muscle use Back: normal inspection, no vertebral tenderness, other (Muscle tenderness over left upper back) Shoulder: normal inspection, no evidence of injury, soft tissue tenderness Elbow/Forearm: normal inspection, no evidence of injury, normal ROM Wrist: Yes normal inspection, Yes no evidence of injury, Yes normal ROM Hand: normal inspection, no evidence of injury, normal ROM Neurologic/Psychiatric: alert, normal mood/affect Skin: normal color, warm/dry Progress/Results/Core Measures Results/Orders Lab Results Laboratory Tests Test 02/19/23 14:05 Range/Units White Blood Count 7.7 4.3-11.0 10^3/uL Red Blood Count 4.62 3.80-5.11 10^6/uL Hemoglobin 13.7 11.5-16.0 g/dL Hematocrit 40 35-52 % Mean Corpuscular Volume 87 80-99 fL Mean Corpuscular Hemoglobin 30 25-34 pg Mean Corpuscular Hemoglobin Concent 34 32-36 g/dL Red Cell Distribution Width 13.6 10.0-14.5 % Platelet Count 217 130-400 10^3/uL Mean Platelet Volume 10.3 9.0-12.2 fL Immature Granulocyte % (Auto) 0 % Neutrophils (%) (Auto) 60 42-75 % Lymphocytes (%) (Auto) 29 12-44 % Monocytes (%) (Auto) 7 0-12 % Eosinophils (%) (Auto) 2 0-10 % Basophils (%) (Auto) 1 0-10 % Neutrophils # (Auto) 4.7 1.8-7.8 X 10^3 Lymphocytes # (Auto) 2.3 1.0-4.0 X 10^3 Monocytes # (Auto) 0.6 0.0-1.0 X 10^3 Eosinophils # (Auto) 0.2 0.0-0.3 10^3/uL Basophils # (Auto) 0.1 0.0-0.1 10^3/uL Immature Granulocyte # (Auto) 0.0 0.0-0.1 10^3/uL Sodium Level 140 135-145 MMOL/L Potassium Level 3.3 L 3.6-5.0 MMOL/L Chloride Level 105 98-107 MMOL/L Carbon Dioxide Level 24 21-32 MMOL/L Anion Gap 11 5-14 MMOL/L Blood Urea Nitrogen 10 7-18 MG/DL Creatinine 0.78 0.60-1.30 MG/DL Estimat Glomerular Filtration Rate 94 BUN/Creatinine Ratio 13 Glucose Level 79 70-105 MG/DL Calcium Level 9.0 8.5-10.1 MG/DL Corrected Calcium 8.7 8.5-10.1 MG/DL Magnesium Level 1.7 1.6-2.4 MG/DL Total Bilirubin 0.5 0.1-1.0 MG/DL Aspartate Amino Transf (AST/SGOT) 18 5-34 U/L Alanine Aminotransferase (ALT/SGPT) 18 0-55 U/L Alkaline Phosphatase 68 40-136 U/L Troponin I < 0.028 <0.028 NG/ML Total Protein 7.4 6.4-8.2 GM/DL Albumin 4.4 3.2-4.5 GM/DL My Orders Orders - MARVA LEE TAX AUDITOR Cbc With Automated Diff (02/19/23 15:46) Magnesium (02/19/23 15:46) Ekg Tracing (02/19/23 15:46) Comprehensive Metabolic Panel (02/19/23 15:46) Ed Iv/Invasive Line Start (02/19/23 15:46) Troponin I [place] (02/19/23 15:46) Orphenadrine Inj (Ed Only) (Norflex Inje (02/19/23 16:00) Ketorolac Injection (Toradol Injection) (02/19/23 16:00) Potassium Chloride (Tablet) (K Dur Table (02/19/23 17:15) Medications Given in ED Vital Signs/I&O Blood Pressure Mean: 132 Progress Progress Note : Progress Note Patient seen and evaluated, resting comfortably in bed, no acute distress. Based on exam and symptoms, this is likely musculoskeletal pain, but since pain is in the left shoulder and left neck, cardiac work-up initiated including EKG, CBC, CMP, magnesium, troponin. Toradol and Norflex ordered for pain. CBC grossly normal. CMP grossly normal, potassium slightly low 3.3. Magnesium normal 1.7. Troponin negative. Potassium ordered for low potassium. Patient reports improved pain after medications. Will discharge with baclofen. Discharge instructions and return precautions provided. Initial ECG Impression Date: Feb 19, 2023 Initial ECG Impression Time: 15:58 Initial ECG Rate: 81 Initial ECG Rhythm: Normal Sinus Initial ECG Intervals: Normal Initial ECG Impression: Nonspecific Changes Initial ECG Comparisson: Unchanged Comment Similar appearing EKG from 01/26/2016. Departure Impression Primary Impression: Musculoskeletal pain Additional Impression: Hypokalemia Disposition: HOME, SELF-CARE Condition: Stable Departure-Patient Inst. Decision time for Depature: 17:18 Referrals: [facility] (PCP/Family) Primary Care Physician Patient Instructions: Muscle strain Add. Discharge Instructions: Continue taking 800 mg of ibuprofen every 8 hours with food as needed for pain. You may also take 1000 mg of Tylenol every 8 hours as needed for pain. Take baclofen up to 3 times a day as needed for muscle spasms. Increase potassium in your diet. You can do this by eating bananas, potatoes, or green leafy vegetables. Follow-up with primary care provider if symptoms continue. Return for severe pain, inability to move your arm, chest pain, or any other new, concerning, or worsening symptoms. All discharge instructions reviewed with patient and/or family. Voiced understanding. Scripts Baclofen (Baclofen) 10 Mg Tablet 10 MG PO TID, #21 TAB 0 Refills Prov: MARVA LEE APRN 02/19/23 MARVA LEE APRN Feb 19, 2023 15:48
[2023-02-19] MEDS ORDERED: ORPHENADRINE 60 MG/2 ML (NORFLEX) AMP (ED ONLY) IV ONE (16:00)
[2023-02-19] MEDS ORDERED: KETOROLAC 15 MG/ML VIAL IVP ONE (16:00)
[2023-02-19 16:16] LABS: BASOPHILS # (AUTO) 0.1 10^3/uL (0.0-0.1); BASOPHILS % (AUTO) 1 % (0-10); EOSINOPHILS # (AUTO) 0.2 10^3/uL (0.0-0.3); EOSINOPHILS % (AUTO) 2 % (0-10); HEMATOCRIT 40 % (35-52); HEMOGLOBIN 13.7 g/dL (11.5-16.0); LYMPHOCYTES # (AUTO) 2.3 X 10^3 (1.0-4.0); LYMPHOCYTES % (AUTO) 29 % (12-44); MEAN CORPUSCULAR HEMOGLOBIN 30 pg (25-34); MEAN CORPUSCULAR HGB CONC 34 g/dL (32-36); MEAN CORPUSCULAR VOLUME 87 fL (80-99); MEAN PLATELET VOLUME 10.3 fL (9.0-12.2); MONOCYTES # (AUTO) 0.6 X 10^3 (0.0-1.0); MONOCYTES % (AUTO) 7 % (0-12); NEUTROPHILS # (AUTO) 4.7 X 10^3 (1.8-7.8); NEUTROPHILS % (AUTO) 60 % (42-75); PLATELET COUNT 217 10^3/uL (130-400); WHITE BLOOD COUNT 7.7 10^3/uL (4.3-11.0)
[2023-02-19 16:27] LABS: ALBUMIN 4.4 GM/DL (3.2-4.5); CHLORIDE 105 MMOL/L (98-107); POTASSIUM 3.3 MMOL/L (3.6-5.0); SODIUM 140 MMOL/L (135-145)
[2023-02-19 16:29] LABS: GLUCOSE 79 MG/DL (70-105)
[2023-02-19 16:30] LABS: TOTAL PROTEIN 7.4 GM/DL (6.4-8.2)
[2023-02-19 16:31] LABS: BILIRUBIN,TOTAL 0.5 MG/DL (0.1-1.0); CARBON DIOXIDE 24 MMOL/L (21-32)
[2023-02-19 16:33] LABS: ALKALINE PHOSPHATASE 68 U/L (40-136); CREATININE SERUM 0.78 MG/DL (0.60-1.30); GFR ESTIMATED 94
[2023-02-19 16:34] LABS: BUN/CREATININE RATIO 13
[2023-02-19 16:36] LABS: ALANINE AMINOTRANSFERASE 18 U/L (0-55); MAGNESIUM 1.7 MG/DL (1.6-2.4)
[2023-02-19] MEDS ORDERED: KCL 20 MEQ TAB (K-DUR) PO ONE (17:15)
[2023-02-19] MEDS ORDERED: BACL10TA PO (17:20)
[2023-02-19 17:32] VITALS: BP 140/80
== END 2023-02-19 17:32 | disposition home or self-care (01) ==
LOC: EDUNIT# 15:32 → ER 15:34
DX: M25.512 Pain in left shoulder (principal); M54.2 Cervicalgia; M54.6 Pain in thoracic spine; E87.6 Hypokalemia
CPT/HCPCS: 36415; 80053; 83735; 84484; 85025; 93005

== ENCOUNTER 2023-03-11 13:46 | Outpatient (RCR) | payer MEDICAID ==
[~2023-03-11 13:46] MED LIST changes: +BACL10TA PO
[2023-03-11 14:29] LABS: BASOPHILS # (AUTO) 0.1 10^3/uL (0.0-0.1); BASOPHILS % (AUTO) 1 % (0-10); EOSINOPHILS # (AUTO) 0.1 10^3/uL (0.0-0.3); EOSINOPHILS % (AUTO) 2 % (0-10); HEMATOCRIT 43 % (35-52); HEMOGLOBIN 14.2 g/dL (11.5-16.0); LYMPHOCYTES # (AUTO) 2.4 10^3/uL (1.0-4.0); LYMPHOCYTES % (AUTO) 33 % (12-44); MEAN CORPUSCULAR HEMOGLOBIN 30 pg (25-34); MEAN CORPUSCULAR HGB CONC 33 g/dL (32-36); MEAN CORPUSCULAR VOLUME 89 fL (80-99); MEAN PLATELET VOLUME 10.4 fL (9.0-12.2); MONOCYTES # (AUTO) 0.6 10^3/uL (0.0-1.0); MONOCYTES % (AUTO) 8 % (0-12); NEUTROPHILS # (AUTO) 4.2 10^3/uL (1.8-7.8); NEUTROPHILS % (AUTO) 57 % (42-75); PLATELET COUNT 311 10^3/uL (130-400); WHITE BLOOD COUNT 7.4 10^3/uL (4.3-11.0)
[2023-03-11 15:03] LABS: ALANINE AMINOTRANSFERASE 14 U/L (0-55); ALBUMIN 4.6 GM/DL (3.2-4.5); ALKALINE PHOSPHATASE 68 U/L (40-136); BILIRUBIN,TOTAL 0.4 MG/DL (0.1-1.0); BUN/CREATININE RATIO 17; CARBON DIOXIDE 25 MMOL/L (21-32); CHLORIDE 107 MMOL/L (98-107); CREATININE SERUM 0.83 MG/DL (0.60-1.30); GFR ESTIMATED 87; GLUCOSE 74 MG/DL (70-105); POTASSIUM 2.8 MMOL/L (3.6-5.0); SODIUM 141 MMOL/L (135-145); TOTAL PROTEIN 7.7 GM/DL (6.4-8.2)
== END 2023-03-14 | disposition home or self-care (01) ==
LOC: ONC 13:46
PROVIDERS: ATTEND Internal Medicine Hematology & Oncology
DX: D50.9 Iron deficiency anemia, unspecified (principal); E87.6 Hypokalemia
CPT/HCPCS: 36415; 80053; 82728; 83540; 83550; 85025

== ENCOUNTER 2023-03-19 13:17 | Outpatient (RCR) | payer MEDICAID, OTHER | END 2023-04-14 | disposition home or self-care (01) | LOC: ONC 13:17 | PROVIDERS: ATTEND Internal Medicine Hematology & Oncology | DX: D50.9 Iron deficiency anemia, unspecified (principal); E87.6 Hypokalemia ==